=== PATIENT | male | born 1970 | race Caucasian/White ===

== ENCOUNTER 2020-09-10 15:43 | Emergency (ER) | payer MEDICARE, OTHER, SELFPAY ==
[2020-09-10 16:03] VITALS: BP 157/92; PULSE 115; RESP 18; TEMP 37.4; O2SAT 97; BMI 33.0
[2020-09-10 16:44] VITALS: RESP 18; O2SAT 98
[2020-09-10] MEDS: morphine 4 mg/mL SDV 1 mL IM (16:44)
[2020-09-10] MEDS: LORazepam 2 mg/mL INJ 1 mL IM (16:44)
[2020-09-10] MEDS: orphenadrine 30 mg/mL Inj 2 mL 60 MG IM (16:45)
[2020-09-10] MEDS: ketorolac 60 mg/2 mL INJ IM (16:45)
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
--- NOTE | 2020-09-10 17:21 | PC.NURSE ---
INFORMED OF DC PATIENT INFORMED OF DC. NURSE AND PRESENT FOR DISCUSSION. PATIENT OKAY WITH DC AND SET UP WITH PCP BY CASE DANIELG.
[2020-09-10 17:33] VITALS: BP 145/98; PULSE 100; RESP 18; O2SAT 95
--- NOTE | 2020-09-11 14:34 | DCPLANNER ---
international account manager had message to speak with patient about getting established with a primary care and a referral to pain management. international account manager called phone number [phone], was disconnected, unable to speak with patient at this time.
== END 2020-09-10 17:34 | disposition home or self-care (01) ==
PROVIDERS: Emergency Provider Family Medicine; PCP Family Medicine
DX: M25.222 Flail joint, left elbow (principal); G89.29 Other chronic pain; M54.9 Dorsalgia, unspecified; X58.XXXA Exposure to other specified factors, initial encounter
CPT/HCPCS: 12345; 96372; 99281; 99283; J1885; J2060; J2270; J2360

== ENCOUNTER 2020-09-13 18:32 | Emergency (ER) | payer MEDICARE, OTHER, SELFPAY ==
[2020-09-13 18:37] VITALS: BMI 33.0
--- NOTE | 2020-09-13 18:42 | ED_ITS ---
HPI - Altered Mental Status General: Chief Complaint: Psychiatric Symptoms Stated Complaint: chronic back pain/heroin withdrawl Time Seen by Provider: 09/13/20 18:34 History of Present Illness: HPI narrative: This patient is a 50-year-old male who comes in today after a fall. He said he fell because he is weak and he is weak because he is withdrawing from heroin. He has chronic pain in his back and arm. He has had multiple surgeries to his left elbow and basically has a nonfunctioning arm. He said that he got kicked out of pain management because he was using heroin. He was using heroin because they were giving him enough pain medicine. He is extremely labile, 1 minute yelling and cussing in the next minute crying and apologizing. He states that he would never kill himself but he would be very happy if he did today. complaint: altered mental status and weakness Onset (ago): unknown Severity: severe Context: drug abuse (States withdrawing from heroin) Review of Systems General: Reports: ROS unobtainable due to mental status (Very limited) Card: Denies: chest pain Resp: Denies: productive cough or non-productive cough Musc: Reports: back pain (Chronic) and extremity pain (Chronic); Denies: neck pain Skin/Breast: Denies: rash Neuro: Reports: headache(s) (Since falling and hitting his head today) and frequent falls; Denies: numbness in extremities or weakness in extremities Juanito/Lymph: Denies: easy bruising or easy bleeding PFS ED PFSH: Medical History (Updated 09/13/20 @ 21:17 by Veronica Cormier MD) Chronic back pain Flail joint of elbow Social History (Updated 09/13/20 @ 18:47 by Harvinder Moreira RN) Smoking and tobacco status: current some day smoker Alcohol intake: never Substance/Drug Use: current Substance/Drug use type: Heroin, Amphetamines and Methamphetamine Physical Exam Const: COMMON NORMALS: alert HENMT: HEAD & SCALP: normal to inspection FACE & SINUS: normal facial exam Eye: GENERAL EYE: appearance normal, both eyes and all related structures Neck/C-Spine: COMMON NORMALS: supple, no meningeal signs and no JVD Chest: COMMONS NORMALS: normal inspection of the chest Resp: COMMON NORMALS: normal respiratory effort, No use of accessory muscles and clear to auscultation bilaterally AUSCULTATION: clear to auscultation bilaterally Cardio: COMMON NORMALS: no JVD, regular rate, regular rhythm and No murmurs present (Cardio) RATE: regular rate RHYTHM: regular rhythm GI: COMMON NORMALS: Normal to inspection, nondistended, normoactive bowel sounds present, Soft to palpation and non-tender INSPECTION: Yes normal to inspection AUSCULTATION: Yes normoactive bowel sounds PALPATION: Yes Soft to palpation Back/Pelvis: COMMON NORMALS: thoracic and lumbar spine normal to inspection Extremity: NARRATIVE EXTREMITY EXAM: Multiple areas of track astudillo on both forearms. The left arm has a flail elbow joint and is basically uncontrollable for the patient Neuro: COMMON NORMALS: moves all extremities, no focal motor deficits and no sensory deficits noted SENSORIUM/ORIENTATION: Yes alert MENINGEAL SIGNS: Yes no meningeal signs Psych: COMMON NORMALS: mental status grossly normal, cooperative and normal affect ATTITUDE: Yes bizarre and Yes agitated ACTIVITY/MOTOR BEHAVIOR: Yes restless SPEECH: Yes loud and Yes Pressured speech present MOOD & AFFECT: Yes sad, Yes tearful, Yes Labile affect present and Yes hostile affect THOUGHT PROCESS: disorganized and Flight of ideas present INSIGHT: Poor insight present (Psych) JUDGEMENT: Poor judgement present (Psych) Skin: COMMON NORMALS: no rashes or lesions noted and turgor normal GENERAL SKIN EXAM: no rashes or lesions noted and turgor normal Course ED course: This patient is a 50-year-old male. He was very labile and worked up in the department and I gave him a dose of Geodon which seemed to help calm him down. He was much more cooperative and oriented after that. He asked to be discharged because we were not giving him any pain medicine. We discussed options for pain management and treatment of his substance abuse. He was discharged home and hopefully he will seek out resources to get help with his various problems. He was not suicidal in the ER Vital Signs: Vital signs: Vital Signs Pulse Rate 89 09/13/20 21:29 Respiratory Rate 16 09/13/20 21:29 Blood Pressure 144/79 09/13/20 21:29 Pulse Oximetry 96 09/13/20 21:29 MDM - Altered Mental Status Lab Data: Labs: Lab Results 09/13/20 09/13/20 09/13/20 Range/Units 19:51 19:51 19:56 WBC 7.3 (4.0-10.0) 10^3/ uL RBC 4.31 (4.1-5.3) 10^6/u L Hgb 11.9 (11.7-16.6) g/dL Hct 38.8 L (42.0-52.0) % MCV 90.0 (80-94) fL MCH 27.6 L (28.0-34.0) pg MCHC 30.7 (30.0-36.0) g/dL RDW 12.9 (12.1-15.1) % Plt Count 321 (130-400) 10^3/c mm MPV 10.2 (7.4-10.4) fL Neut % (Auto) 70.7 % Lymph % (Auto) 21.0 % [place] % (Auto) 5.9 % Eos % (Auto) 1.0 % Baso % (Auto) 1.0 % Neut # (Auto) 5.15 (1.8-7.7) 10^3/u L Lymph # (Auto) 1.5 (0.8-4.8) 10^3/u L [place] # (Auto) 0.4 (0.2-0.9) 10^3/u L Eos # (Auto) 0.1 (0.0-0.8) 10^3/u L Baso # (Auto) 0.1 (0.0-0.1) 10^3/u L Nucleated RBC % (a uto) 0 % Nucleated RBCs # 0.0 /100WBC PT (12.1-14.9) SECO NDS INR (0.8-1.2) Sodium (136-145) mmol/L Potassium (3.5-5.1) mmol/L Chloride (98-107) mmol/L Carbon Dioxide (22-29) mmol/L Anion Gap (5-19) BUN (6-20) mg/dL Creatinine (0.7-1.2) mg/dL GFR Calculation (90-130) mL/min Glucose (65-115) mg/dL Calculated Osmolal ity (285-295) mOsm/k g Calcium (8.5-10.5) mg/dL Total Bilirubin (0.15-1.2) mg/dL AST (0-40) U/L ALT (0-41) U/L Alkaline Phosphata se (40-130) IU/L Total Protein (6.6-8.7) g/dL Albumin (3.5-5.2) g/dL Globulin (1.3-4.6) g/dL TSH (0.27-4.20) uIU/ mL Urine Color Yellow (Yellow) Urine Appearance Clear (CLEAR) Urine pH 8 H (5-7) Ur Specific Gravit y 1.005 (1.005-1.030) Urine Protein Neg (Negative) Urine Glucose (UA) Norm (Normal) Urine Ketones Negative (Negative) Urine Blood Neg (Negative) Urine Nitrate Negative (Negative) Urine Bilirubin Neg (Negative) Prot Sulfosalicyli c Acd Negative (Negative) Urine Urobilinogen Norm (Negative) mg/dL Ur Leukocyte Stephanie ase Negative (Negative) Salicylates (3-10) mg/dL Urine Opiates Scre en Positive H (Negative) ng/mL Acetaminophen (10-30) ug/mL Ur Barbiturates Sc reen Negative (Negative) ng/mL Ur Phencyclidine S crn Negative (Negative) ng/mL Ur Amphetamines Sc reen Positive H (Negative) ng/mL U Benzodiazepines Scrn Positive H (Negative) ng/mL Urine Cocaine Scre en Negative (Negative) ng/mL U Marijuana (THC) Screen Positive H (Negative) ng/mL Ethyl Alcohol (0-10) mg/dL 09/13/20 09/13/20 Range/Units 19:56 19:56 WBC (4.0-10.0) 10^3/ uL RBC (4.1-5.3) 10^6/u L Hgb (11.7-16.6) g/dL Hct (42.0-52.0) % MCV (80-94) fL MCH (28.0-34.0) pg MCHC (30.0-36.0) g/dL RDW (12.1-15.1) % Plt Count (130-400) 10^3/c mm MPV (7.4-10.4) fL Neut % (Auto) % Lymph % (Auto) % [place] % (Auto) % Eos % (Auto) % Baso % (Auto) % Neut # (Auto) (1.8-7.7) 10^3/u L Lymph # (Auto) (0.8-4.8) 10^3/u L [place] # (Auto) (0.2-0.9) 10^3/u L Eos # (Auto) (0.0-0.8) 10^3/u L Baso # (Auto) (0.0-0.1) 10^3/u L Nucleated RBC % (a uto) % Nucleated RBCs # /100WBC PT 12.60 (12.1-14.9) SECO NDS INR 0.92 (0.8-1.2) Sodium 140 (136-145) mmol/L Potassium 3.9 (3.5-5.1) mmol/L Chloride 105 (98-107) mmol/L Carbon Dioxide 24 (22-29) mmol/L Anion Gap 14.9 (5-19) BUN 17 (6-20) mg/dL Creatinine 0.9 (0.7-1.2) mg/dL GFR Calculation 89.0 L (90-130) mL/min Glucose 99 (65-115) mg/dL Calculated Osmolal ity 292 (285-295) mOsm/k g Calcium 9.6 (8.5-10.5) mg/dL Total Bilirubin 0.4 (0.15-1.2) mg/dL AST 22 (0-40) U/L ALT 18 (0-41) U/L Alkaline Phosphata se 72 (40-130) IU/L Total Protein 7.5 (6.6-8.7) g/dL Albumin 3.7 (3.5-5.2) g/dL Globulin 3.8 (1.3-4.6) g/dL TSH 0.81 (0.27-4.20) uIU/ mL Urine Color (Yellow) Urine Appearance (CLEAR) Urine pH (5-7) Ur Specific Gravit y (1.005-1.030) Urine Protein (Negative) Urine Glucose (UA) (Normal) Urine Ketones (Negative) Urine Blood (Negative) Urine Nitrate (Negative) Urine Bilirubin (Negative) Prot Sulfosalicyli c Acd (Negative) Urine Urobilinogen (Negative) mg/dL Ur Leukocyte Stephanie ase (Negative) Salicylates < 0.3 L (3-10) mg/dL Urine Opiates Scre en (Negative) ng/mL Acetaminophen < 5.0 L (10-30) ug/mL Ur Barbiturates Sc reen (Negative) ng/mL Ur Phencyclidine S crn (Negative) ng/mL Ur Amphetamines Sc reen (Negative) ng/mL U Benzodiazepines Scrn (Negative) ng/mL Urine Cocaine Scre en (Negative) ng/mL U Marijuana (THC) Screen (Negative) ng/mL Ethyl Alcohol < 10 (0-10) mg/dL Discharge Plan Discharge Patient Disposition: Home Clinical Impression: Active substance abuse Chronic back pain Qualifiers: Back pain location: back pain in unspecified location Back pain laterality: unspecified Qualified Code(s): M54.9 - Dorsalgia, unspecified Flail joint of elbow Qualifiers: Laterality: left Qualified Code(s): M25.222 - Flail joint, left elbow Condition: Stable Prescriptions: No Action diclofenac sodium 75 mg tablet,delayed release (DR/EC) 75 mg PO Q12H PRN (Reason: pain) Qty: 20 RF: 0 hydrocodone-acetaminophen 7.5-300 mg tablet 1 tab PO Q6H PRN (Reason: pain) Qty: 10 RF: 0 tizanidine 4 mg capsule 4 mg PO Q6H PRN (Reason: muscle spasticity) Qty: 20 RF: 0 Discharge Orders: Discharge Order (Routine); Ordered 09/13/20 Ordered By: Veronica Cormier Referrals: [facility], [Staff Physician] - 4-7 days Rivas Lobo MD [Primary Care Provider] - Discharge Diet: Usual diet Discharge Activity: Resume usual activity Patient Instructions: Chronic Pain (ED), Polysubstance Abuse (ED) Activity Restrictions/Additional Instructions: Return to the ER if any thoughts of harming yourself or anyone else. Seek help with your chronic pain as advised on your last ER visit. Seek help with your substance abuse through behavioral health and other community resources. Discharge Date/Time: 09/13/20 21:31 Coding Level of Care Code ED Senior Oracle Database Administrator for Simi Fwd Exam Comprehensive
--- NOTE | 2020-09-13 18:58 | CTR_ITS ---
PROCEDURE INFORMATION: Exam: CT Head Without Contrast Exam date and time: 09/13/2020 7:11 PM Age: 50 years old Clinical indication: Pain and injury or trauma; Fall; Blunt trauma (contusions or hematomas); Headache; Injury details: Left frontal hematoma; Additional info: Fell, hit head TECHNIQUE: Imaging protocol: Computed tomography of the head without contrast. Axial, coronal and sagittal reformatted images were created and reviewed. Radiation optimization: All CT scans at this facility use at least one of these dose optimization techniques: automated exposure control; mA and/or kV adjustment per patient size (includes targeted exams where dose is matched to clinical indication); or iterative reconstruction. COMPARISON: No relevant prior studies available. RADIATION DOSE METRICS: Total DLP (mGy-cm): 644.71 FINDINGS: Brain: Subtle, patchy areas of hypoattenuation in the periventricular and subcortical white matter, nonspecific but suggestive of mild chronic small vessel ischemic disease. Focal, well-circumscribed hypodensity in the left inferior basal ganglia, consistent with a dilated perivascular space versus chronic lacunar infarct. No CT evidence of acute intracranial hemorrhage or acute territorial infarction. No significant mass effect or midline shift. Basal cisterns patent. Cerebral ventricles: Prominence of the cortical sulci, cisterns and ventricular system, consistent with cerebral and cerebellar volume loss. Bones/joints: No acute osseous abnormality. Paranasal sinuses: Mild ethmoid and maxillary sinus mucosal thickening. No fluid levels. Mastoid air cells: Grossly unremarkable. Vasculature: Mild calcific atherosclerotic disease in the cavernous internal carotid arteries. Soft tissues: Mild left frontal scalp swelling. CT/CT head wo con* [id number] IMPRESSION: 1. No CT evidence of acute intracranial pathology. 2. Additional findings, as above. Radiation Dose CTDIVOL = (mGy): DLP = 644.71 (mGy-cm)
[2020-09-13] MEDS: ziprasidone 20 mg/mL SDV IM (19:11)
[2020-09-13 19:49] VITALS: BP 125/77; PULSE 97; O2SAT 95
[2020-09-13 20:01] LABS: Add Urine Microscopic? NO
--- NOTE | 2020-09-13 20:08 | PC.NURSE ---
Pt given water and food. Pt repositioned for comfort.
[2020-09-13 20:10] LABS: Basophils # 0.1 10^3/uL (0.0-0.1); Eosinophils # 0.1 10^3/uL (0.0-0.8); Hematocrit 38.8 % (42.0-52.0); Hemoglobin 11.9 g/dL (11.7-16.6); Lymphocytes # 1.5 10^3/uL (0.8-4.8); Mean Corpuscular HGB Conc 30.7 g/dL (30.0-36.0); Mean Corpuscular Hemoglobin 27.6 pg (28.0-34.0); Mean Platelet Volume 10.2 fL (7.4-10.4); Monocytes # 0.4 10^3/uL (0.2-0.9); Monocytes % 5.9 %; Neutrophils # 5.15 10^3/uL (1.8-7.7); Neutrophils % 70.7 %; Nucleated Red Blood Cells % 0 %; Platelet Count 321 10^3/cmm (130-400); Red Blood Count 4.31 10^6/uL (4.1-5.3); Red Cell Distribution Width 12.9 % (12.1-15.1); White Blood Count 7.3 10^3/uL (4.0-10.0)
[2020-09-13 20:14] LABS: Amphetamines Screen Urine Positive (Negative); Barbiturates Screen Urine Negative (Negative); Benzodiazepines Screen Urine Positive (Negative); Cocaine Screen Urine Negative (Negative); Opiate Screen Urine Positive (Negative); PCP Screen Urine Negative (Negative); THC Screen Urine Positive (Negative)
[2020-09-13 20:29] LABS: INR 0.92 (0.8-1.2)
[2020-09-13 20:36] LABS: Bilirubin Urine Neg (Negative); Blood Urine Neg (Negative); Glucose Urine UA Norm (Normal); Ketones Urine Negative (Negative); Leukocyte Esterase Urine Negative (Negative); Nitrate Urine Negative (Negative); Protein Urine Neg (Negative); Specific Gravity, Urine 1.005 (1.005-1.030); Sulfosalicylic Acid Urine Negative (Negative); Urine Appearance Clear (CLEAR); Urine Color Yellow (Yellow); Urobilinogen Urine Norm (Negative); pH Urine 8 (5-7)
[2020-09-13 20:48] LABS: Alanine Aminotransferase 18 U/L (0-41); Albumin Level 3.7 g/dL (3.5-5.2); Alkaline Phosphatase 72 IU/L (40-130); Anion Gap 14.9 (5-19); Aspartate Amino Transferase 22 U/L (0-40); Blood Urea Nitrogen 17 mg/dL (6-20); Calcium 9.6 mg/dL (8.5-10.5); Carbon Dioxide 24 mmol/L (22-29); Chloride 105 mmol/L (98-107); Globulin 3.8 g/dL (1.3-4.6); Glucose 99 mg/dL (65-115); Osmolality Calculated 292 mOsm/kg (285-295); Potassium 3.9 mmol/L (3.5-5.1); Sodium 140 mmol/L (136-145); Thyroid Stimulating Hormone 0.81 uIU/mL (0.27-4.20); Total Bilirubin 0.4 mg/dL (0.15-1.2); Total Protein 7.5 g/dL (6.6-8.7)
[2020-09-13 20:49] LABS: Acetaminophen < 5.0 ug/mL (10-30); Alcohol Level < 10 mg/dL (0-10); Salicylate < 0.3 mg/dL (3-10)
[2020-09-13 20:56] VITALS: BP 168/90; PULSE 91; O2SAT 99
[2020-09-13 21:29] VITALS: BP 144/79; PULSE 89; RESP 16; O2SAT 96
--- NOTE | 2020-09-13 21:31 | PC.NURSE ---
Pt placed in pt gown and discharged to waiting room to wait for his .
== END 2020-09-13 21:31 | disposition home or self-care (01) ==
PROVIDERS: Emergency Provider Emergency Medicine; PCP Family Medicine
DX: F11.23 Opioid dependence with withdrawal (principal); F17.210 Nicotine dependence, cigarettes, uncomplicated; M79.602 Pain in left arm; R53.1 Weakness; R41.82 Altered mental status, unspecified
CPT/HCPCS: 12345; 36415; 70450; 80053; 80306; 80307; 81003; 84443; 85025; 85610; 96372; 99284; J3486

== ENCOUNTER 2021-06-07 20:54 | Inpatient (IN) | payer MEDICARE, OTHER, SELFPAY ==
--- NOTE | 2021-06-07 21:23 | XRR_ITS ---
PROCEDURE INFORMATION: Exam: XR Chest Exam date and time: 06/07/2021 9:23 PM Age: 50 years old Clinical indication: Pain; Left-sided; Patient HX: Sharp cp, SOB TECHNIQUE: Imaging protocol: XR of the chest. Views: 1 view. COMPARISON: No relevant prior studies available. FINDINGS: Lungs: Right lung is clear. Left lung poorly assessed. Pleural spaces: Large left-sided pleural effusion. Heart/Mediastinum: Unremarkable. No cardiomegaly. Bones/joints: Right shoulder reverse arthroplasty. Left posterior rib fractures. XR/XR chest 1V portable [id number] IMPRESSION: 1. Large left pleural effusion. 2. Left rib fractures.
--- NOTE | 2021-06-07 21:39 | CTR_ITS ---
PROCEDURE INFORMATION: Exam: CT Chest With Contrast; Diagnostic Exam date and time: 06/07/2021 9:39 PM Age: 50 years old Clinical indication: Injury or trauma; Fracture, traumatic; Other: Costal; Prior surgery; Surgery type: Shoulder; Patient HX: Recent fall with left rib fracture. C/O continued pain with worsening SOB. TECHNIQUE: Imaging protocol: Diagnostic computed tomography of the chest with contrast. Radiation optimization: All CT scans at this facility use at least one of these dose optimization techniques: automated exposure control; mA and/or kV adjustment per patient size (includes targeted exams where dose is matched to clinical indication); or iterative reconstruction. Contrast material: OMNI 300; Contrast volume: 95 ml; Contrast route: INTRAVENOUS (IV); COMPARISON: CR (CHEST, ) 06/07/2021 9:27 PM RADIATION DOSE METRICS: Total DLP (mGy-cm): 1152.84 FINDINGS: Lungs: Compressed left lung parenchyma in the lower lobe primarily. Right lung clear. Pleural spaces: Large left pleural effusion. Multi loculated appearance. Foci of air in the posterior left pleural space. Heart: Unremarkable. No cardiomegaly. No pericardial effusion. Mediastinal space: Calcified granulomas within mediastinum. Aorta: Unremarkable. No aortic aneurysm. Lymph nodes: Negative for mediastinal lymphadenopathy. Right shoulder reverse arthroplasty with unremarkable alignment. Bones/joints: Multiple displaced left posterior rib fractures. Unremarkable thoracic spine alignment. Soft tissues: No significant chest wall soft tissue hematoma. CT/CT chest w con* [id number] IMPRESSION: 1. Large volume multiloculated left pleural effusion. Foci of air in the left posterior pleural space is not thick. Possibly posttraumatic but infection cannot be excluded. 2. Multiple left-sided posterior rib fractures. Radiation Dose CTDIVOL = (mGy): DLP = 1152.84 (mGy-cm)
[2021-06-07 21:41] VITALS: BP 139/86; PULSE 105; RESP 24; O2SAT 97; BMI 29.0
--- NOTE | 2021-06-07 21:46 | ED_ITS ---
HPI - Chest Pain General: Chief Complaint: ER Hold Stated Complaint: AFIB Time Seen by Provider: 06/07/21 21:23 Source: patient and EMS Mode of arrival: EMS Limitations: no limitations History of Present Illness: HPI narrative: 50-year-old male who is here by EMS with palpitations and left-sided chest pain. He states he has a history of A. fib and goes in RVR when he is in pain. He states he had a fall a week and a half ago was seen at [place] and diagnosed with left-sided rib fractures. He states he had increasing pain in that left side that sharp nature and worse with movement. States he feels like he cannot breathe either. He is in A. fib with RVR and was given Cardizem and heart rate is improved. Associated symptoms: Reports dyspnea and palpitations; Deny abdominal pain, fever(s), nausea or vomiting Review of Systems Const: Denies: fever(s), chills, body aches or change in appetite Eyes: Denies: blurry vision or eye discomfort ENMT: Denies: throat pain or dental pain Card: Reports: chest pain and palpitations Resp: Reports: dyspnea GI: Denies: abdominal pain, nausea, vomiting or diarrhea : Denies: dysuria Musc: Denies: neck pain or back pain Skin/Breast: Denies: rash Neuro: Denies: headache(s) Psych: Denies: depression Juanito/Lymph: Denies: easy bruising All/Imm: Denies: urticaria PFSH ED PFSH: Medical History (Updated 09/21/20 @ 00:00 by ) Chronic back pain Flail joint of elbow Social History (Updated 09/13/20 @ 18:47 by Harvinder Moreira RN) Smoking and tobacco status: current some day smoker Alcohol intake: never Physical Exam Const: COMMON NORMALS: no acute distress, patient oriented x3 and healthy appearing HENMT: COMMON NORMALS: normocephalic and atraumatic HEAD & SCALP: normocephalic and atraumatic Eye: COMMON NORMALS: Equal, round and reactive pupils present and EOMs intact bilaterally PUPIL: Yes Equal, round and reactive pupils present Neck/C-Spine: COMMON NORMALS: full ROM and supple Chest: COMMONS NORMALS: normal inspection of the chest OTHER: Tenderness over left chest Resp: COMMON NORMALS: normal respiratory effort, No retractions and No use of accessory muscles OTHER: Decreased breath sounds to left lung Cardio: COMMON NORMALS: No murmurs present (Cardio) RATE: tachycardic RHYTHM: abnormal rhythm irregularly irregular GI: COMMON NORMALS: Normal to inspection, nondistended, normoactive bowel sounds present, Soft to palpation, non-tender and no masses PALPATION: Yes Soft to palpation Extremity: COMMON NORMALS: normal to inspection and full ROM Neuro: COMMON NORMALS: patient oriented x3, moves all extremities and no focal motor deficits Psych: COMMON NORMALS: mental status grossly normal, Normal thought process present and cooperative THOUGHT PROCESS: Normal thought process present Skin: COMMON NORMALS: no rashes or lesions noted and no wounds GENERAL SKIN EXAM: no rashes or lesions noted Course Vital Signs: Vital signs: Vital Signs Temperature 99.5 F 06/08/21 00:38 Pulse Rate 93 06/08/21 00:38 Respiratory Rate 16 06/08/21 00:55 Blood Pressure 129/73 06/08/21 00:38 Pulse Oximetry 93 06/08/21 00:38 MDM - Chest Pain MDM Narrative: Medical decision making narrative: Patient presents here with chest pain fever and dyspnea after fall 2 weeks ago and had rib fractures. His CT scan here showed the rib fractures along with a pleural effusion with suspicion for possible empyema. I spoke to hospitalist will admit here. Also spoke to CT surgeon Dr. Roberts who is consulted. Lab Data: Labs: Lab Results 06/07/21 06/07/21 06/07/21 Range/Units 22:21 22:21 22:21 WBC 14.1 H (4.0-10.0) 10^3/ uL RBC 3.69 L (4.1-5.3) 10^6/u L Hgb 10.4 L (11.7-16.6) g/dL Hct 32.4 L (42.0-52.0) % MCV 87.8 (80-94) fL MCH 28.2 (28.0-34.0) pg MCHC 32.1 (30.0-36.0) g/dL RDW 14.2 (12.1-15.1) % Plt Count 352 (130-400) 10^3/c mm MPV 10.1 (7.4-10.4) fL Neut % (Auto) 77.5 % Lymph % (Auto) 10.9 % [place] % (Auto) 8.9 % Eos % (Auto) 0.4 % Baso % (Auto) 0.5 % Neut # (Auto) 10.91 H (1.8-7.7) 10^3/u L Lymph # (Auto) 1.5 (0.8-4.8) 10^3/u L [place] # (Auto) 1.3 H (0.2-0.9) 10^3/u L Eos # (Auto) 0.1 (0.0-0.8) 10^3/u L Baso # (Auto) 0.1 (0.0-0.1) 10^3/u L Nucleated RBC % (a uto) 0 % Nucleated RBCs # 0.0 /100WBC Sodium 131 L (136-145) mmol/L Potassium 3.8 (3.5-5.1) mmol/L Chloride 96 L (98-107) mmol/L Carbon Dioxide 26 (22-29) mmol/L Anion Gap 12.8 (5-19) BUN 11 (6-20) mg/dL Creatinine 0.8 (0.7-1.2) mg/dL GFR Calculation 101.9 (90-130) mL/min Glucose 98 (65-115) mg/dL Calculated Osmolal ity 271 L (285-295) mOsm/k g Lactic Acid (0.5-2.2) mmol/L Calcium 8.3 L (8.5-10.5) mg/dL Total Bilirubin 0.4 (0.15-1.2) mg/dL AST 14 (0-40) U/L ALT 12 (0-41) U/L Alkaline Phosphata se 117 (40-130) IU/L Troponin T Baselin e 17 H (0-15) ng/L Troponin T [address] [place] (0-15) ng/L Delta Troponin T (0-10) ABS# Total Protein 5.8 L (6.6-8.7) g/dL Albumin 2.9 L (3.5-5.2) g/dL Globulin 2.9 (1.3-4.6) g/dL 06/07/21 06/07/21 Range/Units 22:45 23:12 WBC (4.0-10.0) 10^3/ uL RBC (4.1-5.3) 10^6/u L Hgb (11.7-16.6) g/dL Hct (42.0-52.0) % MCV (80-94) fL MCH (28.0-34.0) pg MCHC (30.0-36.0) g/dL RDW (12.1-15.1) % Plt Count (130-400) 10^3/c mm MPV (7.4-10.4) fL Neut % (Auto) % Lymph % (Auto) % [place] % (Auto) % Eos % (Auto) % Baso % (Auto) % Neut # (Auto) (1.8-7.7) 10^3/u L Lymph # (Auto) (0.8-4.8) 10^3/u L [place] # (Auto) (0.2-0.9) 10^3/u L Eos # (Auto) (0.0-0.8) 10^3/u L Baso # (Auto) (0.0-0.1) 10^3/u L Nucleated RBC % (a uto) % Nucleated RBCs # /100WBC Sodium (136-145) mmol/L Potassium (3.5-5.1) mmol/L Chloride (98-107) mmol/L Carbon Dioxide (22-29) mmol/L Anion Gap (5-19) BUN (6-20) mg/dL Creatinine (0.7-1.2) mg/dL GFR Calculation (90-130) mL/min Glucose (65-115) mg/dL Calculated Osmolal ity (285-295) mOsm/k g Lactic Acid 0.6 (0.5-2.2) mmol/L Calcium (8.5-10.5) mg/dL Total Bilirubin (0.15-1.2) mg/dL AST (0-40) U/L ALT (0-41) U/L Alkaline Phosphata se (40-130) IU/L Troponin T Baselin e (0-15) ng/L Troponin T 120 Min [place] 18.18 H (0-15) ng/L Delta Troponin T 1.18 (0-10) ABS# Total Protein (6.6-8.7) g/dL Albumin (3.5-5.2) g/dL Globulin (1.3-4.6) g/dL Imaging Data^: CT Chest: Attestation: I personally reviewed and interpreted this imaging study as follows: Radiologist's impression: [facility] [place] [address] CT Scan Report Signed Patient: Payam Olea Unit #: [id number] : 1970 Age/Sex: 50 / M ADM Date: 06/07/21 Loc: ER Room/Bed: Attending Dr: Ordering Provider/Ordering MD: Candace Ahs MD Date of Service: 06/07/21 Procedure(s): CT chest w con* [id number] Accession Number(s): [id number] Report Number: [id number] PROCEDURE INFORMATION: Exam: CT Chest With Contrast; Diagnostic Exam date and time: 06/07/2021 9:39 PM Age: 50 years old Clinical indication: Injury or trauma; Fracture, traumatic; Other: Costal; Prior surgery; Surgery type: Shoulder; Patient HX: Recent fall with left rib fracture. C/O continued pain with worsening SOB. TECHNIQUE: Imaging protocol: Diagnostic computed tomography of the chest with contrast. Radiation optimization: All CT scans at this facility use at least one of these dose optimization techniques: automated exposure control; mA and/or kV adjustment per patient size (includes targeted exams where dose is matched to clinical indication); or iterative reconstruction. Contrast material: OMNI 300; Contrast volume: 95 ml; Contrast route: INTRAVENOUS (IV); COMPARISON: CR (CHEST, ) 06/07/2021 9:27 PM RADIATION DOSE METRICS: Total DLP (mGy-cm): 1152.84 FINDINGS: Lungs: Compressed left lung parenchyma in the lower lobe primarily. Right lung clear. Pleural spaces: Large left pleural effusion. Multi loculated appearance. Foci of air in the posterior left pleural space. Heart: Unremarkable. No cardiomegaly. No pericardial effusion. Mediastinal space: Calcified granulomas within mediastinum. Aorta: Unremarkable. No aortic aneurysm. Lymph nodes: Negative for mediastinal lymphadenopathy. Right shoulder reverse arthroplasty with unremarkable alignment. Bones/joints: Multiple displaced left posterior rib fractures. Unremarkable thoracic spine alignment. Soft tissues: No significant chest wall soft tissue hematoma. CT/CT chest w con* [id number] IMPRESSION: 1. Large volume multiloculated left pleural effusion. Foci of air in the left posterior pleural space is not thick. Possibly posttraumatic but infection cannot be excluded. 2. Multiple left-sided posterior rib fractures. EKG Data^: EKG 1: Attestation: I personally reviewed and interpreted this EKG as follows: EKG interpretation date: 06/07/21 EKG interpretation time: 22:17 Interpretation: sinus tach hr [address] or t wave abnormalities qrs 122 qtc 396 Discharge Plan Discharge Patient Disposition: Admitted As Inpatient Admit Provider: Kellie Willard Clinical Impression: Pleural effusion, Fracture, rib Condition: Stable Coding Level of Care Code ED Janitorial Services Supervisor for Chg Fwd Exam Comprehensive
[2021-06-07 21:51] VITALS: RESP 24
[2021-06-07] MEDS: morphine 4 mg/mL SDV 1 mL IVP (21:51)
[2021-06-07] MEDS: ondansetron 2 mg/ML SDV 2 mL 4 MG IVP (21:51)
[2021-06-07] MEDS: iohexol 300 mg/mL 100 mL Btl IV (22:11)
[2021-06-07 22:23] VITALS: TEMP 38.4
[2021-06-07 22:27] LABS: Basophils # 0.1 10^3/uL (0.0-0.1); Basophils % 0.5 %; Eosinophils # 0.1 10^3/uL (0.0-0.8); Eosinophils % 0.4 %; Hematocrit 32.4 % (42.0-52.0); Hemoglobin 10.4 g/dL (11.7-16.6); Lymphocytes # 1.5 10^3/uL (0.8-4.8); Lymphocytes % 10.9 %; Mean Corpuscular HGB Conc 32.1 g/dL (30.0-36.0); Mean Corpuscular Hemoglobin 28.2 pg (28.0-34.0); Mean Corpuscular Volume 87.8 fL (80-94); Mean Platelet Volume 10.1 fL (7.4-10.4); Monocytes # 1.3 10^3/uL (0.2-0.9); Monocytes % 8.9 %; Neutrophils # 10.91 10^3/uL (1.8-7.7); Neutrophils % 77.5 %; Nucleated Red Blood Cells % 0 %; Platelet Count 352 10^3/cmm (130-400); Red Blood Count 3.69 10^6/uL (4.1-5.3); Red Cell Distribution Width 14.2 % (12.1-15.1); White Blood Count 14.1 10^3/uL (4.0-10.0)
[2021-06-07 22:33] VITALS: RESP 16
[2021-06-07] MEDS: acetaminophen 500 mg Tablet 1000 MG PO (22:33)
[2021-06-07] MEDS: HYDROmorphone 1 mg/mL INJ 1 mL IVP (22:33)
[2021-06-07] MEDS: piperacillin-tazobactam 3.375 GM in sodium chloride 0.9% (plus) 50 ML IV (22:47)
[2021-06-07 22:48] LABS: Troponin(5th) Baseline 17 ng/L (0-15)
[2021-06-07 22:51] VITALS: BP 130/79; PULSE 101; RESP 14; O2SAT 93
[2021-06-07 22:54] LABS: Alanine Aminotransferase 12 U/L (0-41); Albumin Level 2.9 g/dL (3.5-5.2); Alkaline Phosphatase 117 IU/L (40-130); Anion Gap 12.8 (5-19); Aspartate Amino Transferase 14 U/L (0-40); Blood Urea Nitrogen 11 mg/dL (6-20); Calcium 8.3 mg/dL (8.5-10.5); Carbon Dioxide 26 mmol/L (22-29); Chloride 96 mmol/L (98-107); Creatinine Clr Calc Pharmacy 135.7497; Globulin 2.9 g/dL (1.3-4.6); Glomerular Filtration Rate 101.9 mL/min (90-130); Glucose 98 mg/dL (65-115); Osmolality Calculated 271 mOsm/kg (285-295); Potassium 3.8 mmol/L (3.5-5.1); Sodium 131 mmol/L (136-145); Total Bilirubin 0.4 mg/dL (0.15-1.2); Total Protein 5.8 g/dL (6.6-8.7)
[2021-06-07 23:11] LABS: Lactic Sepsis W/Reflex 0.6 mmol/L (0.5-2.2)
[2021-06-07] MEDS: vancomycin 1,000 MG in sodium chloride 0.9% 250 ML 250 MG IV (23:16)
--- NOTE | 2021-06-07 23:23 | ECG_ITS ---
[facility] Test Date: 2021-06-07 Pat Name: Payam Olea Department: Room: Gender: Male Bonbon Dipper: : 1970 Requested By: Candace Ash Order Number: [id number] Edil MD: JEFFERY MONGE Measurements Intervals [place] Rate: 100 P: 51 MD: 159 QRS: 3 QRSD: 122 T: 41 QT: 339 QTc: 439 Interpretive Statements SINUS TACHYCARDIA POSSIBLE LEFT ATRIAL ENLARGEMENT [-0.1mV P WAVE IN V1/V2] POSSIBLE RIGHT VENTRICULAR CONDUCTION DELAY [RSR (QR) IN V1/V2] ABNORMAL RHYTHM ECG No previous ECG available for comparison Electronically Signed On 06-08-2021 14:30:38 CDT by JEFFERY MONEG [id number]
[2021-06-07 23:37] LABS: Troponin 5 2HR 18.18 ng/L (0-15); Troponin 5 2HR Delta 1.18 ABS# (0-10)
[2021-06-08] VITALS (25 sets, daily range): BP systolic 129–168; BP diastolic 73–101; PULSE 75–93; RESP 14–24; TEMP 36.9–37.8; O2SAT 92–99
[2021-06-08] MEDS: HYDROmorphone 1 mg/mL INJ 1 mL IVP ×5 (00:55→21:05)
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
[2021-06-08 02:24] LABS: SARS Covid-2 Antigen Negative (Negative)
--- NOTE | 2021-06-08 03:23 | ECG_ITS ---
[facility] Test Date: 2021-06-08 Pat Name: Payam Olea Department: Room: EDIP Gender: Male Medical Administrative Specialist: : 1970 Requested By: Candace Ash Order Number: [id number] Reading MD: JEFFERY MONGE Measurements Intervals [place] Rate: 81 P: 50 [place]: 174 QRS: 8 QRSD: 130 T: 40 QT: 374 QTc: 436 Interpretive Statements SINUS RHYTHM POSSIBLE LEFT ATRIAL ENLARGEMENT [-0.1mV P WAVE IN V1/V2] POSSIBLE RIGHT VENTRICULAR CONDUCTION DELAY [RSR (QR) IN V1/V2] Compared to ECG 06/07/2021 22:17:55 Sinus tachycardia no longer present Electronically Signed On 06-08-2021 14:30:18 CDT by JEFFERY MONGE [id number]
[2021-06-08] MEDS: D5-NS 0.45% + KCL 20 mEq 20 MEQ/1,000 ML BAG 75 MEQ IV ×2 (03:52→17:20)
[2021-06-08] MEDS: ipratropium-albuterol 3 mL Neb INHALATION ×4 (03:55→19:45)
[2021-06-08] MEDS: ketorolac 30 mg/mL INJ IVP ×2 (06:04→20:30)
[2021-06-08 06:05] LABS: Basophils # 0.1 10^3/uL (0.0-0.1); Basophils % 0.6 %; Eosinophils # 0.1 10^3/uL (0.0-0.8); Eosinophils % 0.5 %; Hematocrit 33.2 % (42.0-52.0); Hemoglobin 10.2 g/dL (11.7-16.6); Lymphocytes # 1.6 10^3/uL (0.8-4.8); Lymphocytes % 12.1 %; Mean Corpuscular HGB Conc 30.7 g/dL (30.0-36.0); Mean Corpuscular Hemoglobin 27.6 pg (28.0-34.0); Mean Platelet Volume 10.2 fL (7.4-10.4); Monocytes % 7.6 %; Neutrophils # 9.95 10^3/uL (1.8-7.7); Neutrophils % 77.5 %; Nucleated Red Blood Cells % 0 %; Platelet Count 339 10^3/cmm (130-400); Red Blood Count 3.69 10^6/uL (4.1-5.3); Red Cell Distribution Width 14.3 % (12.1-15.1); White Blood Count 12.8 10^3/uL (4.0-10.0)
[2021-06-08 06:18] LABS: INR 1.19 (0.8-1.2)
[2021-06-08] MEDS: vancomycin 1,250 MG/250 ML PIGGYBACK 250 MG IV ×3 (06:18→22:43)
[2021-06-08 06:24] LABS: Troponin 5 6HR 20.34 ng/L (0-15); Troponin 5 6HR Delta 3.34 ng/L (0-12)
[2021-06-08 06:26] LABS: Anion Gap 13.7 (5-19); Blood Urea Nitrogen 10 mg/dL (6-20); C Reactive Protein 224.5 mg/L (0.0-4.9); Calcium 7.9 mg/dL (8.5-10.5); Carbon Dioxide 28 mmol/L (22-29); Chloride 98 mmol/L (98-107); Creatinine Clr Calc Pharmacy 135.7497; Glomerular Filtration Rate 101.9 mL/min (90-130); Glucose 228 mg/dL (65-115); Magnesium 1.6 mg/dL (1.7-2.3); Osmolality Calculated 286 mOsm/kg (285-295); Potassium 4.7 mmol/L (3.5-5.1); Sodium 135 mmol/L (136-145)
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
[2021-06-08 06:53] LABS: Erythrocyte Sedimentation Rate 107 mm/hr (0-10)
[2021-06-08] MEDS: piperacillin-tazobactam 3.375 GM in sodium chloride 0.9% (plus) 50 ML IV ×3 (07:37→23:46)
--- NOTE | 2021-06-08 09:28 | PC.RESP ---
SMOKING CESSATION INFORMATION SENT TO PATIENT.
[2021-06-08] MEDS: neomycin-poly-bacitracin oint 28 gm 1 APPLIC TOPICAL (10:24)
[2021-06-08] MEDS: docusate sodium 100 mg Capsule PO ×2 (10:25→17:20)
[2021-06-08] MEDS: famotidine 20 mg Tablet PO ×2 (10:25→17:20)
--- NOTE | 2021-06-08 11:49 | PM.MISC ---
Miscellaneous Note Purpose of Documentation: I have conferred by phone with my colleague from pulmonary medicine, Dr. Field. He has been gracious enough to review the CT scan and will give his impression.
--- NOTE | 2021-06-08 14:00 | PC.NURSE ---
Approximately 1400: Dr. Salmon requested that the patient be transferred to [facility]. I spoke with Mary with the [facility] Transfer Service and she reported that patient is placed on the waiting list, however she is unsure of how long it will be. Face sheet faxed per her request to .
--- NOTE | 2021-06-08 17:26 | PM.TDS ---
Transfer Summary Providers Date of Admission: 06/08/21 07:00 Date of Discharge: 06/08/21 Attending Provider at Admission: Kellie Willard MD Attending Provider at Transfer: Reece Salmon MD Primary Care Provider: Rivas Lobo MD Anticipated Date of Transfer: Anticipated date of transfer: 06/08/21 Receiving Facility & Provider: Receiving Provider: [] Receiving facility: [] Diagnoses at Discharge Discharge Diagnosis (1) Loculated pleural effusion: Status: Acute Reason for Visit Reason for Visit: Palpitations and chest pain Hospital Course Hospital Course 50 year old male who presented to the emergency room with chief complaint of chest pain, palpitations, difficulty breathing and pleuritic chest pain. Symptoms have been going on for several days. 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 He has progressively worsened since that time. A few days ago he had a subjective fever. Upon arrival in the ER he was worked up for any above-mentioned complaint. CT chest without contrast was done: Large volume multiloculated left pleural effusion.Multiple left-sided posterior rib fractures. WBC was elevated at 14,000, H&H: 10.4 and 32, CMP:normal, lactic acid : normal, troponin trend: Without any significant delta. PT/INR normal. EKG: Sinus rhythm with no acute ST-T wave changes.Patient was admitted for the management of loculated pleural effusion likely hemorrhagic from history of recent fall, cannot rule out complicated parapneumonic effusion, given the fact that the patient had leukocytosis was febrile.Patient was started on broad-spectrum antibiotics, cultures were sent. Cardiothoracic surgery as well as pulmonary medicine was consulted.Patient will need surgical extirpation of these loculated effusion or VATS decortication.since, we do not have cardiothoracic surgeon available during the weekend as well as in the next week, it was decided to transfer the patient.Patient has been accepted at [facility].Currently patient is stable to be transferred. Physical Exam Const: COMMON NORMALS: patient oriented x3 HENMT: COMMON NORMALS: normocephalic and atraumatic HEAD & SCALP: normocephalic and atraumatic Chest: OTHER: Tenderness in the left rib cage predominantly upper posterior. Resp: COMMON NORMALS: normal respiratory effort EFFORT & INSPECTION: Yes symmetric chest movement OTHER: Diminished air entry over left lower lung field. Cardio: COMMON NORMALS: regular rate, regular rhythm, S1 normal heart sound present, S2 normal heart sound present, No gallops present (Cardio), No murmurs present (Cardio), No rub (Cardio) and Peripheral pulses 2+ throughout RATE: regular rate RHYTHM: regular rhythm HEART SOUNDS: S1 normal heart sound present and S2 normal heart sound present PERIPHERAL PULSES: Peripheral pulses 2+ throughout GI: COMMON NORMALS: Normal to inspection, nondistended, normoactive bowel sounds present, Soft to palpation, non-tender, No hepatosplenomegaly present and no masses AUSCULTATION: Yes normoactive bowel sounds PALPATION: Yes Soft to palpation and Yes No hepatosplenomegaly present RECTAL EXAM: Yes deferred Extremity: COMMON NORMALS: no clubbing, cyanosis or edema and no pedal edema Neuro: COMMON NORMALS: patient oriented x3 TS Data Data Completed and Pending: Completed Studies During Hospitalization Category Date Time Status CT chest w con* [id number] Urgent Cat Scan 06/07/21 21:39 Completed XR chest 1V mara ble [id number] Stat Exams 06/07/21 21:23 Completed Pending at discharge Category Date Time Status Basic Metabolic P simran AM LABS Lab 06/09/21 04:00 Ordered Blood Culture Sta t Lab 06/07/21 23:12 Results Complete Blood Co unt w/Auto AM LABS Lab 06/09/21 04:00 Ordered Labs from last 24 hours 06/08/21 06/08/21 06/08/21 05:56 05:56 05:56 WBC RBC Hgb Hct MCV MCH MCHC RDW Plt Count MPV Neut % (Auto) Lymph % (Auto) Forest % (Auto) Eos % (Auto) Baso % (Auto) Neut # (Auto) Lymph # (Auto) Forest # (Auto) Eos # (Auto) Baso # (Auto) Nucleated RBC % (a uto) Nucleated RBCs # ESR 107 H PT INR Sodium 135 L Potassium 4.7 Chloride 98 Carbon Dioxide 28 Anion Gap 13.7 BUN 10 Creatinine 0.8 GFR Calculation 101.9 Glucose 228 H Calculated Osmolal ity 286 Lactic Acid Calcium 7.9 L Magnesium 1.6 L Total Bilirubin AST ALT Alkaline Phosphata se Troponin T Baselin e Troponin T 120 Min [place] Delta Troponin T Troponin T Hi Sens 6Hr Troponin T Hi Sens 6Hr Delta C-Reactive Protein 224.5 H Total Protein Albumin Globulin SARS-CoV-2 Ag (Rap id) Blood Type O Positive Rho(D) Type Positive / 4+ Antibody Screen Negative 06/08/21 06/08/21 06/08/21 05:56 05:56 05:56 WBC 12.8 H RBC 3.69 L Hgb 10.2 L Hct 33.2 L MCV 90.0 MCH 27.6 L MCHC 30.7 RDW 14.3 Plt Count 339 MPV 10.2 Neut % (Auto) 77.5 Lymph % (Auto) 12.1 Forest % (Auto) 7.6 Eos % (Auto) 0.5 Baso % (Auto) 0.6 Neut # (Auto) 9.95 H Lymph # (Auto) 1.6 Forest # (Auto) 1.0 H Eos # (Auto) 0.1 Baso # (Auto) 0.1 Nucleated RBC % (a uto) 0 Nucleated RBCs # 0.0 ESR PT 15.40 H INR 1.19 Sodium Potassium Chloride Carbon Dioxide Anion Gap BUN Creatinine GFR Calculation Glucose Calculated Osmolal ity Lactic Acid Calcium Magnesium Total Bilirubin AST ALT Alkaline Phosphata se Troponin T Baselin e Troponin T 120 Min [place] Delta Troponin T Troponin T Hi Sens 6Hr 20.34 H Troponin T Hi Sens 6Hr Delta 3.34 C-Reactive Protein Total Protein Albumin Globulin SARS-CoV-2 Ag (Rap id) Blood Type Rho(D) Type Antibody Screen 06/08/21 06/07/21 06/07/21 02:04 23:12 22:45 WBC RBC Hgb Hct MCV MCH MCHC RDW Plt Count MPV Neut % (Auto) Lymph % (Auto) Forest % (Auto) Eos % (Auto) Baso % (Auto) Neut # (Auto) Lymph # (Auto) Forest # (Auto) Eos # (Auto) Baso # (Auto) Nucleated RBC % (a uto) Nucleated RBCs # ESR PT INR Sodium Potassium Chloride Carbon Dioxide Anion Gap BUN Creatinine GFR Calculation Glucose Calculated Osmolal ity Lactic Acid 0.6 Calcium Magnesium Total Bilirubin AST ALT Alkaline Phosphata se Troponin T Baselin e Troponin T 120 Min [place] 18.18 H Delta Troponin T 1.18 Troponin T Hi Sens 6Hr Troponin T Hi Sens 6Hr Delta C-Reactive Protein Total Protein Albumin Globulin SARS-CoV-2 Ag (Rap id) Negative Blood Type Rho(D) Type Antibody Screen 06/07/21 06/07/21 06/07/21 22:21 22:21 22:21 WBC 14.1 H RBC 3.69 L Hgb 10.4 L Hct 32.4 L MCV 87.8 MCH 28.2 MCHC 32.1 RDW 14.2 Plt Count 352 MPV 10.1 Neut % (Auto) 77.5 Lymph % (Auto) 10.9 Forest % (Auto) 8.9 Eos % (Auto) 0.4 Baso % (Auto) 0.5 Neut # (Auto) 10.91 H Lymph # (Auto) 1.5 Forest # (Auto) 1.3 H Eos # (Auto) 0.1 Baso # (Auto) 0.1 Nucleated RBC % (a uto) 0 Nucleated RBCs # 0.0 ESR PT INR Sodium 131 L Potassium 3.8 Chloride 96 L Carbon Dioxide 26 Anion Gap 12.8 BUN 11 Creatinine 0.8 GFR Calculation 101.9 Glucose 98 Calculated Osmolal ity 271 L Lactic Acid Calcium 8.3 L Magnesium Total Bilirubin 0.4 AST 14 ALT 12 Alkaline Phosphata se 117 Troponin T Baselin e 17 H Troponin T 120 Min [place] Delta Troponin T Troponin T Hi Sens 6Hr Troponin T Hi Sens 6Hr Delta C-Reactive Protein Total Protein 5.8 L Albumin 2.9 L Globulin 2.9 SARS-CoV-2 Ag (Rap id) Blood Type Rho(D) Type Antibody Screen Vitals: Last Vital Signs Temp 99.3 F 06/08/21 16:03 Pulse 88 06/08/21 16:03 Resp 15 06/08/21 16:03 BP 136/74 06/08/21 16:03 Pulse Ox 93 06/08/21 16:03 TS Medications Medications Home Medications tizanidine 4 mg PO TID PRN 06/08/21 [History Confirmed 06/08/21] tramadol 50 mg PO TID PRN 06/08/21 [History Confirmed 06/08/21] Active Medications Acetaminophen (Acetaminophen 325 Mg Tablet) 650 mg PO Q6H PRN PRN Reason: Mild/Mod Pain Or Temp >/= 101 Albuterol/Ipratropium (Ipratropium-Albuterol 3 Ml Neb) 3 ml INHALATION Q6H.RESPIRATORY NADIA Last Admin: 06/08/21 15:36 Dose: 3 ml Documented by: Bisacodyl (Bisacodyl 5 Mg Tablet) 10 mg PO DAILY PRN; Protocol PRN Reason: Constipation (see protocol) Calcium Carbonate (Calcium Carbonate 500 Mg Chew Tablet) 1,000 mg PO Q4H PRN PRN Reason: DYSPEPSI Docusate Sodium (Docusate Sodium 100 Mg Capsule) 100 mg PO BID [facility] Last Admin: 06/08/21 17:20 Dose: 100 mg Documented by: Famotidine (Famotidine 20 Mg Tablet) 20 mg PO BID [facility] Last Admin: 06/08/21 17:20 Dose: 20 mg Documented by: Hydromorphone HCl (Hydromorphone 1 Mg/Ml Inj 1 Ml) 1 mg IVP Q3H PRN PRN Reason: Severe Pain, pain while npo Last Admin: 06/08/21 14:54 Dose: 1 mg Documented by: Piperacillin Sod/Tazobactam (Sod 3.375 gm/ Sodium Chloride) 50 mls @ 12.5 mls/hr IV Q8H [facility]; Protocol Last Admin: 06/08/21 17:20 Dose: 12.5 mls/hr Documented by: Potassium Chloride/Dextrose/Sod Cl (D5-Ns 0.45% + Kcl 20 Meq) 20 meq in 1,000 mls @ 75 mls/hr IV .[id number] [facility] Last Admin: 06/08/21 17:20 Dose: 75 mls/hr Documented by: Vancomycin/PEG/NADA/Lysine/Water (Vancocin) 1,250 mg in 250 mls @ 250 mls/hr IV Q8H [facility] Last Infusion: 06/08/21 16:03 Dose: Infused Documented by: Ketorolac Tromethamine (Ketorolac 30 Mg/Ml Inj) 30 mg IVP Q6H PRN PRN Reason: MODERATE PAIN Stop: 06/13/21 02:50 Last Admin: 06/08/21 06:04 Dose: 30 mg Documented by: Neomycin/Polymyxin/Bacitracin (Rwdcfujb-Epti-Bfjkibvqnu Oint 28 Gm) 1 applic TOPICAL BID [facility] Last Admin: 06/08/21 10:24 Dose: 1 unit Documented by: Ondansetron HCl (Ondansetron 2 Mg/Ml Sdv 2 Ml) 4 mg IVP Q8H PRN PRN Reason: vomiting, or N/V if npo Tizanidine HCl (Tizanidine 4 Mg Tablet) 4 mg PO TID PRN PRN Reason: Muscle Pain Discharge Plan Discharge Patient Disposition: Home Condition: Stable Prescriptions: Continued tizanidine 4 mg tablet 4 mg PO TID PRN (Reason: Muscle Pain) RF: 0 tramadol 50 mg tablet 50 mg PO TID PRN (Reason: Pain) RF: 0 Discharge Orders: Discharge Order (Routine); Ordered 06/08/21 Ordered By: Reece Salmon Discharge Diet: Regular Patient Instructions: Opioid Safety Transfer Attestations Time Spent in Transfer Care*: greater than 30 min Specific Discharge Activities: Specific discharge activities: educating patient, educating and/or supporting family/caregiver, discussing with pcp/other providers, discussing with counter caser/social workers/dc planners, documenting/other paperwork and evaluating patient/reviewing data Status at Transfer: Cognitive status at transfer: cognitively intact, Behavioral status at transfer: cooperative, Functional status at transfer: independent ambulation Quality Metrics Clinical Quality Measures: During this hospital stay, did patient experience: None Coding Level of Care Code Acute Acetylene Torch Burner for Ksuhg Fwd Diagnoses Loculated pleural effusion J90
[2021-06-08] MEDS: acetaminophen 325 mg Tablet 650 MG PO (20:49)
[2021-06-09] VITALS (14 sets, daily range): BP systolic 131–161; BP diastolic 69–81; PULSE 84–98; RESP 16–22; TEMP 36.9–37.6; O2SAT 91–98
[2021-06-09] MEDS: HYDROmorphone 1 mg/mL INJ 1 mL IVP ×4 (00:04→13:37)
[2021-06-09] MEDS: ipratropium-albuterol 3 mL Neb INHALATION ×2 (03:03→08:22)
[2021-06-09] MEDS: vancomycin 1,250 MG/250 ML PIGGYBACK 250 MG IV (06:01)
[2021-06-09 06:04] LABS: Basophils # 0.1 10^3/uL (0.0-0.1); Basophils % 0.4 %; Eosinophils # 0.1 10^3/uL (0.0-0.8); Eosinophils % 0.8 %; Hematocrit 33.7 % (42.0-52.0); Hemoglobin 10.5 g/dL (11.7-16.6); Lymphocytes # 1.4 10^3/uL (0.8-4.8); Lymphocytes % 10.1 %; Mean Corpuscular HGB Conc 31.2 g/dL (30.0-36.0); Mean Corpuscular Hemoglobin 27.9 pg (28.0-34.0); Mean Corpuscular Volume 89.6 fL (80-94); Mean Platelet Volume 9.7 fL (7.4-10.4); Monocytes # 0.9 10^3/uL (0.2-0.9); Monocytes % 6.4 %; Neutrophils # 11.03 10^3/uL (1.8-7.7); Neutrophils % 80.5 %; Nucleated Red Blood Cells % 0 %; Platelet Count 357 10^3/cmm (130-400); Red Blood Count 3.76 10^6/uL (4.1-5.3); Red Cell Distribution Width 14.4 % (12.1-15.1); White Blood Count 13.7 10^3/uL (4.0-10.0)
[2021-06-09] MEDS: D5-NS 0.45% + KCL 20 mEq 20 MEQ/1,000 ML BAG 75 MEQ IV (06:07)
[2021-06-09 06:23] LABS: Anion Gap 15.1 (5-19); Blood Urea Nitrogen 16 mg/dL (6-20); Calcium 8.3 mg/dL (8.5-10.5); Carbon Dioxide 27 mmol/L (22-29); Chloride 99 mmol/L (98-107); Creatinine Clr Calc Pharmacy 135.7497; Glomerular Filtration Rate 101.9 mL/min (90-130); Glucose 118 mg/dL (65-115); Osmolality Calculated 286 mOsm/kg (285-295); Potassium 4.1 mmol/L (3.5-5.1); Sodium 137 mmol/L (136-145)
[2021-06-09] MEDS: piperacillin-tazobactam 3.375 GM in sodium chloride 0.9% (plus) 50 ML IV (07:43)
[2021-06-09] MEDS: docusate sodium 100 mg Capsule PO (07:43)
[2021-06-09] MEDS: famotidine 20 mg Tablet PO (07:43)
[2021-06-09] MEDS: neomycin-poly-bacitracin oint 28 gm 1 APPLIC TOPICAL (07:49)
--- NOTE | 2021-06-09 08:24 | USCV_ITS ---
Payam Olea Age: 50 Gender: M : 1970 Exam Date: 06/09/2021 12:53 Ordering Phys: Reece Salmon MD Technologist: China Meyer [place] [facility] [place]: SOB BP: 149 / 76 HR: 114 Rhythm: Sinus Technical Quality: Suboptimal MEASUREMENTS (Male / Female) Normal Values 2D ECHO LV Diastolic Diameter PLAX 4.0 cm 4.2 - 5.9 / 3.9 - 5.3 cm LV Systolic Diameter PLAX 2.4 cm LV Chamber Size 4.6 cm IVS Diastolic Thickness 2.4 cm 0.6 - 1.0 / 0.6 - 0.9 cm IVS Systolic Thickness 2.5 cm LVPW Diastolic Thickness 1.3 cm 0.6 - 1.0 / 0.6 - 0.9 cm LVPW Systolic Thickness 1.4 cm RV Chamber Size 2.9 cm LVOT Diameter 1.9 cm LV Ejection Fraction 2D Teich 71.9 % LA Diameter 3.5 cm LA Width 2.9 cm LA Height 6.5 cm RA Width 3.5 cm RA Height 5.2 cm Aorta at Sinotubular Diameter 3.2 cm M-MODE LV Diastolic Diameter MM 6.7 cm 4.2 - 5.9 / 3.9 - 5.3 cm LV Systolic Diameter MM 3.8 cm LV Ejection Fraction MM Teich 74.2 % IVS Diastolic Thickness MM 1.1 cm 0.6 - 1.0 / 0.6 - 0.9 cm IVS Systolic Thickness MM 1.9 cm LVPW Diastolic Thickness MM 1.7 cm 0.6 - 1.0 / 0.6 - 0.9 cm LVPW Systolic Thickness MM 1.8 cm Aortic Annulus Diameter 3.5 cm LA Ao Ratio MM 1.1 DOPPLER AV Peak Velocity 147.0 cm/s LVOT Peak Velocity 129.0 cm/s AV Area Cont Eq vti 2.7 cm squared AV Area Cont Eq pk 2.5 cm squared MV Area PHT 2.7 cm squared Mitral E to A Ratio 1.0 MV E' Velocity 43.5 cm/s Mitral E to MV E' Ratio 6.5 Mitral E to LV E' Lateral Ratio 7.7 Mitral E to LV E' Septal Ratio 5.7 TV Peak E Velocity 110.0 cm/s Right Atrial Pressure 3.0 mmHg FINDINGS Left Ventricle Normal left ventricular size. LV systolic function is normal with EF of 55-60%. No regional wall motion abnormalities. Normal diastolic filling pattern. Right Ventricle Normal in size and function Right Atrium The right atrium is normal in size. Left Atrium The left atrium is dilated Mitral Valve Structurally normal mitral valve without significant stenosis or prolapse. There is no mitral regurgitation. Aortic Valve Grossly normal without stenosis. There is no aortic regurgitation. Tricuspid Valve Structurally normal tricuspid valve without significant stenosis or regurgitation. Insufficient TR jet to calculate RVSP Pulmonic Valve Structurally normal pulmonic valve without significant stenosis. There is no pulmonic regurgitation. Pericardium Large sized pleural effusion is seen Aorta Normal ascending aorta dimension. CONCLUSIONS LV systolic function is normal with EF of 55-60% Normal diastolic function Left atrium is enlarged Large sized pleural effusion is seen No comparison studies are available Mike Flores MD (Electronically Signed) Final Date: 09 June 2021 15:52 S
[2021-06-09] MEDS: morphine 4 mg/mL SDV 1 mL 1 MG IVP (10:51)
--- NOTE | 2021-06-09 13:31 | PC.NURSE ---
This nurse talked to patients mother to let her know patient is being transferred to [facility].
--- NOTE | 2021-06-09 14:24 | PC.NURSE ---
PT HAS DONE OKAY FOR ME TODAY. HE HAS HAD GOOD URINE OUTPUT. PT DOES HAVE COMPLAINTS OF PAIN BUT FALLS ASLEEP SHORTLY AFTER THE SCHEDULED DILAUDID IS GIVEN. PT IS ALERT AND ORIENTATED. ANSWERS ALL QUESTIONS APPROPRIATELY. PT DOES APPEAR TO BE PARANOID AND DOES HAVE SOME OUTBURSTS BUT IS DEESCALATED VERBALLY. [facility] HAS BED READY FOR PT. REPORT WAS CALLED TO JUAN M HELTON. PT GIVEN DILAUDID AT APPROXIMATELY [id number] TO ASSIST IN TRANSFER. AMBULANCE JUST ARRIVED TO TO [facility]. PT SAFELY WITH EMS.
== END 2021-06-09 14:32 | disposition short-term general hospital (02) | DRG 187 ==
LOC: ER 06-08 00:12 → ER IP 06-08 01:50 → MEDSURG 06-08 11:29
PROVIDERS: Admitting Provider Hospitalist; Emergency Provider Emergency Medicine; PCP Family Medicine; Visit Provider Internal Medicine
DX: J90 Pleural effusion, not elsewhere classified (principal); D62 Acute posthemorrhagic anemia; L03.113 Cellulitis of right upper limb; I10 Essential (primary) hypertension; G89.29 Other chronic pain; M54.9 Dorsalgia, unspecified; Z96.652 Presence of left artificial knee joint; F17.210 Nicotine dependence, cigarettes, uncomplicated; Z59.0 Homelessness; S22.42XD Multiple fractures of ribs, left side, subsequent encounter for fracture with routine healing; W19.XXXD Unspecified fall, subsequent encounter; S01.01XD Laceration without foreign body of scalp, subsequent encounter; F19.11 Other psychoactive substance abuse, in remission
CPT/HCPCS: 36415; 71045; 71260; 80048; 80053; 83605; 83735; 84484; 85025; 85610; 85651; 86140; 86850; 86900; 87040; 87426; 93005; 93306; 94640; 96365; 96367; 96375; 96376; 99285; J1170; J1885; J2270; J2405; J2543; J3370; J7050; Q9967

== ENCOUNTER 2021-09-17 12:25 | Emergency (ER) | payer MEDICARE, OTHER, SELFPAY ==
[2021-09-17 12:27] VITALS: BP 150/101; PULSE 78; RESP 20; TEMP 37; O2SAT 100; BMI 26.4
--- NOTE | 2021-09-17 12:28 | XRR_ITS ---
PROCEDURE INFORMATION: Exam: XR Right Knee Exam date and time: 09/17/2021 12:28 PM Age: 51 years old Clinical indication: Pain; Swelling or effusion of joint; Knee; Right; Additional info: R knee pain and swelling TECHNIQUE: Imaging protocol: XR Right knee. Views: 3 views. COMPARISON: No relevant prior studies available. FINDINGS: Bones/joints: No evidence of fracture or dislocation. Joint space narrowing of the medial compartment. Soft tissues: Suprapatellar effusion present. Anterior superficial soft tissue swelling. XR/XR knee RT 3V* [id number] IMPRESSION: 1. No evidence of fracture or dislocation. 2. Suprapatellar effusion. Radiation Dose CTDIVOL = (mGy): DLP = (mGy-cm)
[2021-09-17 12:38] VITALS: BP 150/101; PULSE 78; RESP 18; O2SAT 99
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
[2021-09-17] MEDS: acetaminophen-codeine 300-30mg Tablet 1 TAB PO (12:55)
--- NOTE | 2021-09-17 13:26 | CTR_ITS ---
PROCEDURE INFORMATION: Exam: CT Right Lower Extremity Without Contrast, Knee Exam date and time: 09/17/2021 1:26 PM Age: 51 years old Clinical indication: Pain; Knee; Right; Additional info: Rule out fracture TECHNIQUE: Imaging protocol: CT of the Right lower extremity without contrast was performed. Exam focused on the knee. Radiation optimization: All CT scans at this facility use at least one of these dose optimization techniques: automated exposure control; mA and/or kV adjustment per patient size (includes targeted exams where dose is matched to clinical indication); or iterative reconstruction. COMPARISON: CR XR knee RT 3V* [id number] 09/17/2021 12:34 PM RADIATION DOSE METRICS: Total DLP (mGy-cm): 725.26 FINDINGS: Bones/joints: No evidence of acute fracture. Subchondral cyst of the medial tibial plateau posteriorly with adjacent corticated irregularity which may be related to a remote avulsion fracture. Mild joint space narrowing of the medial compartment. Medial and lateral meniscal calcification noted. No dislocation. Soft tissues: Large suprapatellar effusion. Superficial soft tissue swelling/edema anterior to the knee. Calcifications at the insertion of the quadriceps tendon consistent with enthesopathy. CT/CT knee RT wo con* [id number] IMPRESSION: 1. Large suprapatellar effusion. 2. No acute fracture. 3. Subchondral cyst of the medial tibial plateau posteriorly with adjacent corticated irregularity which may be related to a remote avulsion fracture. 4. Medial joint space narrowing. 5. Meniscal calcification incidentally noted. Radiation Dose CTDIVOL = (mGy): DLP = 725.26 (mGy-cm)
[2021-09-17] MEDS: morphine 4 mg/mL SDV 1 mL IVP (13:35)
--- NOTE | 2021-09-17 13:36 | PC.NURSE ---
PATIENT IV SITE INFILTRATED. PATIENT IV STOPPED AND REMOVED BY THIS NURSE.
--- NOTE | 2021-09-17 13:45 | PC.PHAR ---
PT STATES HE TAKES NO RX OR OTC MEDICATIONS-PT STATES HE SUPPOSE TO TAKE BP MEDS BUT DOESNT
[2021-09-17 13:48] LABS: Basophils # 0.1 10^3/uL (0.0-0.1); Basophils % 0.7 %; Eosinophils # 0.1 10^3/uL (0.0-0.8); Eosinophils % 0.8 %; Hematocrit 43.4 % (42.0-52.0); Hemoglobin 13.7 g/dL (11.7-16.6); Lymphocytes # 1.7 10^3/uL (0.8-4.8); Lymphocytes % 20.5 %; Mean Corpuscular HGB Conc 31.6 g/dL (30.0-36.0); Mean Corpuscular Hemoglobin 28.2 pg (28.0-34.0); Mean Corpuscular Volume 89.5 fl (80-94); Mean Platelet Volume 10.5 fL (7.4-10.4); Monocytes # 0.8 10^3/uL (0.2-0.9); Monocytes % 9.6 %; Neutrophils # 5.72 10^3/uL (1.8-7.7); Nucleated Red Blood Cells % 0 %; Platelet Count 366 10^3/cmm (130-400); Red Blood Count 4.85 10^6/uL (4.1-5.3); Red Cell Distribution Width 14.6 % (12.1-15.1); White Blood Count 8.4 10^3/uL (4.0-10.0)
[2021-09-17] MEDS: ketorolac 30 mg/mL INJ IM (13:51)
[2021-09-17 14:15] LABS: Anion Gap 14.9 (5-19); Blood Urea Nitrogen 12 mg/dL (6-20); C Reactive Protein 77.1 mg/L (0.0-4.9); Calcium 9.5 mg/dL (8.5-10.5); Carbon Dioxide 26 mmol/L (22-29); Chloride 99 mmol/L (98-107); Glomerular Filtration Rate 118.4 mL/min (90-130); Glucose 69 mg/dL (65-115); Osmolality Calculated 280 mOsm/kg (285-295); Potassium 3.9 mmol/L (3.5-5.1); Sodium 136 mmol/L (136-145)
[2021-09-17] MEDS: morphine 4 mg/mL SDV 1 mL IM (14:38)
--- NOTE | 2021-09-17 14:53 | PC.NURSE ---
PATIENT JOINT ASPIRATION COMPLETED WITH DR CORONEL.
[2021-09-17] MEDS: lidocaine 1% INJ 20 mL INJECTION (14:54)
[2021-09-17] MEDS: benzocaine-menthol 78 gm Canister 1 SPRAY TOPICAL (14:54)
[2021-09-17 15:07] LABS: Color Synovial Fluid YELLOW (PALE YELLOW)
[2021-09-17 15:08] LABS: Appearance Synovial Fluid CLOUDY (CLEAR)
[2021-09-17 15:11] LABS: RBC Synovial Fluid 2 10^3/uL (0-0); Synovial Fluid Mononuclear # 1.887 10^3/uL; Synovial Fluid Polynuclear # 16.168 10^3/uL; WBC Synovial Fluid 18055 /uL (0-150)
[2021-09-17 15:35] LABS: PATH Referal NO
[2021-09-17 15:57] VITALS: BP 146/92; PULSE 81; RESP 16; O2SAT 99
--- NOTE | 2021-09-17 17:18 | PC.NURSE ---
THIS NURSE CHECKED ON PATIENT. PATIENT SLEEPING IN ROOM. THIS NURSE WOKE PATIENT TO READJUSTMENT PATIENT IN HIS BED. PATIENT HAD NO FURTHER NEEDS AT THIS TIME.
[2021-09-17 17:47] VITALS: PULSE 68; O2SAT 99
[2021-09-18 11:44] LABS: Erythrocyte Sedimentation Rate 62 mm/hr (0-10)
== END 2021-09-17 17:45 | disposition home or self-care (01) ==
PROVIDERS: Emergency Provider Emergency Medicine; PCP Electrodiagnostic Medicine
DX: M25.561 Pain in right knee (principal); F17.210 Nicotine dependence, cigarettes, uncomplicated
CPT/HCPCS: 20610; 73562; 73700; 80048; 80500; 85025; 85651; 86140; 87040; 87070; 87075; 87205; 89050; 96372; 96374; 99283; J1885; J2270

== ENCOUNTER 2022-01-15 12:49 | Emergency (ER) | payer MEDICARE, OTHER, SELFPAY ==
[2022-01-15 13:04] VITALS: BP 154/78; PULSE 103; RESP 16; TEMP 37.1; O2SAT 98; BMI 28.2
--- NOTE | 2022-01-15 13:15 | XRR_ITS ---
PROCEDURE INFORMATION: Exam: XR Left Elbow Exam date and time: 01/15/2022 1:15 PM Age: 51 years old Clinical indication: Injury or trauma; Fall; Swelling; Elbow; Left; Blunt trauma (contusions or hematomas); Additional info: Fall with swelling and pain of elbow TECHNIQUE: Imaging protocol: XR Left elbow. Views: 3 or more views. COMPARISON: No relevant prior studies available. FINDINGS: Bones/joints: Chronic displaced comminuted fracture deformities are seen within the elbow. The distal condyle of the humerus and the proximal ulna also display deformity. Soft tissues: Diffuse effusion is seen around the elbow joint. XR/XR elbow LT min 3V* [id number] IMPRESSION: 1. No acute bone abnormality. 2. Chronic deformity is seen in the left elbow as described. 3. Negative for acute bone abnormality. 4. Soft tissue effusion within the elbow
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
--- NOTE | 2022-01-15 14:28 | CTR_ITS ---
PROCEDURE INFORMATION: Exam: CT Left Upper Extremity Without Contrast, Elbow Exam date and time: 01/15/2022 2:28 PM Age: 51 years old Clinical indication: Injury or trauma; Fall; Arm, upper and elbow; Blunt trauma (contusions or hematomas); Injury details: PT fell on left arm 2 days ago. Large abscess above left elbow. Redness, swelling, hot to the touch, fever, pain; Prior surgery; Additional info: Abscess of left elbow TECHNIQUE: Imaging protocol: CT of the Left upper extremity without contrast was performed. Exam focused on the elbow. Radiation optimization: All CT scans at this facility use at least one of these dose optimization techniques: automated exposure control; mA and/or kV adjustment per patient size (includes targeted exams where dose is matched to clinical indication); or iterative reconstruction. COMPARISON: CR XR elbow LT min 3V* [id number] 01/15/2022 1:21 PM RADIATION DOSE METRICS: Total DLP (mGy-cm): 1043.61 FINDINGS: Bones/joints: Chronic appearing bone deformities are seen in the elbow. Apparent fractures and dislocations are seen. The examination does not show radiographic changes consistent with acute osteomyelitis. A 2nd area of inflammatory changes is seen near the anterior aspect of the elbow measuring 25 mm x 32 mm. This finding shows a area of decreased density centrally with a air bubble present. This finding also is consistent with a subcutaneous abscess. These lesions would be amenable to percutaneous drainage. (series 4, image 44) Soft tissues: There is diffuse soft tissue edema present in the area of the elbow joint space. There is a circumscribed fluid collection adjacent to the distal humerus measuring 31 mm x 39 mm. This finding is consistent with a subcutaneous abscess. CT/CT elbow LT wo con* [id number] IMPRESSION: 1. Diffuse effusion is seen throughout the elbow joint area. 2. There are 2 subcutaneous abscess collections seen in the elbow area. 3. Chronic comminuted fracture dislocation of the elbow.
[2022-01-15 15:29] VITALS: RESP 16
[2022-01-15] MEDS: morphine 4 mg/mL SDV 1 mL IM (15:29)
[2022-01-15] MEDS: vancomycin 1,500 MG/300 ML PIGGYBACK 200 MG IV (15:36)
[2022-01-15 15:44] LABS: Basophils # 0.1 10^3/uL (0.0-0.1); Basophils % 0.6 %; Eosinophils # 0.1 10^3/uL (0.0-0.8); Eosinophils % 0.5 %; Hematocrit 40.7 % (42.0-52.0); Hemoglobin 12.8 g/dL (11.7-16.6); Lymphocytes # 1.9 10^3/uL (0.8-4.8); Lymphocytes % 13.9 %; Mean Corpuscular HGB Conc 31.4 g/dL (30.0-36.0); Mean Corpuscular Hemoglobin 27.9 pg (28.0-34.0); Mean Corpuscular Volume 88.9 fl (80-94); Mean Platelet Volume 10.6 fL (7.4-10.4); Monocytes # 1.4 10^3/uL (0.2-0.9); Monocytes % 10.3 %; Neutrophils # 10.36 10^3/uL (1.8-7.7); Neutrophils % 74.3 %; Nucleated Red Blood Cells % 0 %; Platelet Count 255 10^3/cmm (130-400); Red Blood Count 4.58 10^6/uL (4.1-5.3); Red Cell Distribution Width 14.5 % (12.1-15.1)
[2022-01-15 16:20] LABS: Alanine Aminotransferase 22 U/L (0-41); Alkaline Phosphatase 71 IU/L (40-130); Anion Gap 13.1 (5-19); Aspartate Amino Transferase 21 U/L (0-40); Blood Urea Nitrogen 19 mg/dL (6-20); C Reactive Protein 81.9 mg/L (0.0-4.9); Calcium 9.6 mg/dL (8.5-10.5); Carbon Dioxide 24 mmol/L (22-29); Chloride 97 mmol/L (98-107); Globulin 4.4 g/dL (1.3-4.6); Glomerular Filtration Rate 118.4 mL/min (90-130); Glucose 97 mg/dL (65-115); Osmolality Calculated 272 mOsm/kg (285-295); Potassium 4.1 mmol/L (3.5-5.1); Sodium 130 mmol/L (136-145); Total Bilirubin 1.1 mg/dL (0.15-1.2); Total Protein 8.4 g/dL (6.6-8.7)
[2022-01-15] MEDS: sodium chloride 0.9% 1,000 ML 999 ML IV (16:40)
[2022-01-15 17:34] VITALS: RESP 16
[2022-01-15] MEDS: HYDROmorphone 1 mg/mL INJ 1 mL IVP (17:34)
[2022-01-15] MEDS: LORazepam 2 mg/mL INJ 1 mL 1 MG IVP (17:53)
--- NOTE | 2022-01-15 18:15 | PC.NURSE ---
DRESSING PLACED OVER OPENED ABSCESS
[2022-01-15 19:04] VITALS: RESP 16; O2SAT 99
[2022-01-15] MEDS: morphine 4 mg/mL SDV 1 mL IVP (19:04)
--- NOTE | 2022-01-15 19:10 | PC.NURSE ---
patient refused to leave- spoke with physician- med ordered- patient signed paperwork- patient verbalizes understanding of instructions- ambulated from the ed
[2022-01-16 18:10] LABS: Bacillus cereus group Not Detected (NOT DETECT); Bacillus subtillis group Not Detected (NOT DETECT); Corynebacterium Not Detected (NOT DETECT); Cutibacterium acnes (P.acnes) Not Detected (NOT DETECT); Enterococcus Not Detected (NOT DETECT); Enterococcus faecalis Not Detected (NOT DETECT); Enterococcus faecium Not Detected (NOT DETECT); Lactobacillus species Not Detected (NOT DETECT); Listeria Not Detected (NOT DETECT); Listeria monocytogenes Not Detected (NOT DETECT); Micrococcus Not Detected (NOT DETECT); Pan Candida Not Detected (NOT DETECT); Pan Gram-Negative Not Detected (NOT DETECT); Staphylococcus epidermidis Detected (NOT DETECT); Staphylococcus lugdunensis Not Detected (NOT DETECT); Staphylococcus species Detected (NOT DETECT); Streptococcus agalactiae Not Detected (NOT DETECT); Streptococcus anginosus group Not Detected (NOT DETECT); Streptococcus pneumoniae Not Detected (NOT DETECT); Streptococcus pyogenes Not Detected (NOT DETECT); Streptococcus species Not Detected (NOT DETECT); mecA Detected (NOT DETECT); mecC Not Detected (NOT DETECT)
== END 2022-01-15 19:10 | disposition home or self-care (01) ==
PROVIDERS: Physician Assistant; Emergency Provider Emergency Medicine; PCP Electrodiagnostic Medicine
DX: L02.414 Cutaneous abscess of left upper limb (principal); F17.210 Nicotine dependence, cigarettes, uncomplicated
CPT/HCPCS: 10060; 73080; 73200; 80053; 85025; 86140; 87040; 87070; 87075; 87150; 87205; 96365; 96375; 99283; J1170; J2060; J2270; J3370; J7030

== ENCOUNTER 2022-02-18 07:52 | Emergency (ER) | payer MEDICARE, SELFPAY ==
[2022-02-18 07:54] VITALS: BP 145/91; PULSE 105; RESP 18; TEMP 36.8; O2SAT 97; BMI 28.2
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
[2022-02-18 07:59] VITALS: BP 117/92; PULSE 103; RESP 16; TEMP 37.3; O2SAT 97; BMI 28.2
--- NOTE | 2022-02-18 07:59 | ECG_ITS ---
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 Measurements Intervals [place] Rate: 90 P: 26 [place]: 168 QRS: -36 QRSD: 123 T: 56 QT: 367 QTc: 449 Interpretive Statements SINUS RHYTHM LEFT AXIS DEVIATION [QRS AXIS < -30] POSSIBLE RIGHT VENTRICULAR CONDUCTION DELAY [RSR (QR) IN V1/V2] INFERIOR MYOCARDIAL INFARCTION , OF INDETERMINATE AGE [40+ ms Q WAVE AND/OR ST/T ABNORMALITY IN II/aVF] INTERPRETATION BASED ON A DEFAULT AGE OF 40 YEARS Compared to ECG 06/08/2021 03:32:05 Left-axis deviation now present Myocardial infarct finding now present Electronically Signed On 02-18-2022 20:17:35 CDT by Anat Mejia M.D. [email or web address] division [id number] conner
--- NOTE | 2022-02-18 08:04 | CT_ITS ---
WS: [id number] CT ABDOMEN PELVIS TECHNIQUE: Contrast-enhanced CT of the abdomen and pelvis with coronal and sagittal reformatted image s. CLINICAL INFORMATION: abd pain COMPARISON: None. DLP: 1804.[address] scans at [facility] use at least one of these dose optimization techniques: automated e xposure control; mA and/or kV adjustment per patient size (includes targeted exams where dose is matc hed to clinical indication); or iterative reconstruction. FINDINGS: Mild hepatomegaly. Diffuse fatty infiltration of the liver. Small esophageal hiatal hernia. Splenomeg du. Low-attenuation lesion in the spleen nonspecific but likely a small cyst or hemangioma measuring 15 mm. Lung bases are well aerated. Adrenal glands are normal. Normal renal parenchymal enhancement. Fluid distended gallbladder. Normal portal vein and splenic vein. Normal pancreas. No hydronephrosis in either kidney. Normal caliber abd ominal aorta. Fat-containing umbilical hernia. Fluid distended loops of proximal and distal small bowel with mucosal enhancement can be seen with sm all bowel enteritis. Scattered stool in the colon. No evidence of high-grade obstruction. Normal appe ndix in the RIGHT lower quadrant. Prior postoperative changes pedicle screw fixation L4-L5 with interbody fusion graft. Grade 1 anterol isthesis L5 on S1. CT/CT abdomen pelvis w con* [id number] IMPRESSION: 1. Fluid distended loops of proximal and distal small bowel with mucosal enhan cement suspicious for small bowel enteritis. 2. Colon is normal in appearance. 3. No evidence of high-grade small or large bowel obstruction. 4. Fat-containing umbilical hernia. 5. Mild hepatomegaly with diffuse fatty infiltration. Mild splenomegaly. 6. Small esophageal hiatal hernia.
--- NOTE | 2022-02-18 08:08 | PC.NURSE ---
PT PLACED ON CONTINUOUS SPO2, NIBP, AND CM.
[2022-02-18 08:20] VITALS: RESP 16
[2022-02-18] MEDS: lactated ringers 1,000 ML 999 ML IV ×2 (08:20→09:28)
[2022-02-18] MEDS: ondansetron 2 mg/ML SDV 2 mL 4 MG IVP (08:20)
[2022-02-18] MEDS: morphine 4 mg/mL SDV 1 mL IVP (08:20)
[2022-02-18 08:48] LABS: Basophils % 0.4 %; Eosinophils # 0.1 10^3/uL (0.0-0.8); Eosinophils % 0.8 %; Hematocrit 44.3 % (42.0-52.0); Hemoglobin 14.6 g/dL (11.7-16.6); Lymphocytes # 0.3 10^3/uL (0.8-4.8); Lymphocytes % 3.6 %; Mean Corpuscular Hemoglobin 28.9 pg (28.0-34.0); Mean Corpuscular Volume 87.5 fl (80-94); Mean Platelet Volume 10.4 fL (7.4-10.4); Monocytes # 0.3 10^3/uL (0.2-0.9); Monocytes % 3.7 %; Neutrophils # 8.26 10^3/uL (1.8-7.7); Neutrophils % 90.9 %; Nucleated Red Blood Cells % 0 %; Platelet Count 273 10^3/cmm (130-400); Red Blood Count 5.06 10^6/uL (4.1-5.3); Red Cell Distribution Width 14.4 % (12.1-15.1); White Blood Count 9.1 10^3/uL (4.0-10.0)
[2022-02-18] MEDS: iohexol 300 mg/mL 100 mL Btl IV (08:54)
[2022-02-18 09:08] LABS: Alanine Aminotransferase 27 U/L (0-41); Albumin Level 4.3 g/dL (3.5-5.2); Alkaline Phosphatase 70 IU/L (40-130); Anion Gap 17.6 (5-19); Aspartate Amino Transferase 30 U/L (0-40); Blood Urea Nitrogen 17 mg/dL (6-20); Calcium 9.1 mg/dL (8.5-10.5); Carbon Dioxide 18 mmol/L (22-29); Chloride 94 mmol/L (98-107); Globulin 4.2 g/dL (1.3-4.6); Glomerular Filtration Rate 88.6 mL/min (90-130); Glucose 159 mg/dL (65-115); Lipase 19 U/L (13-60); Osmolality Calculated 267 mOsm/kg (285-295); Potassium 3.6 mmol/L (3.5-5.1); Sodium 126 mmol/L (136-145); Total Bilirubin 1.4 mg/dL (0.15-1.2); Total Protein 8.5 g/dL (6.6-8.7)
[2022-02-18 09:58] LABS: Lactic Sepsis W/Reflex 2.7 mmol/L (0.5-2.2)
--- NOTE | 2022-02-18 10:07 | PC.PHAR ---
pt states he takes no rx medications
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
[2022-02-18 10:48] LABS: Add Urine Microscopic? NO; Charge for UA Resulting for Rev
[2022-02-18 10:50] LABS: Bilirubin Urine Neg (Negative); Blood Urine Neg (Negative); Glucose Urine UA Norm (Normal); Ketones Urine Negative (Negative); Leukocyte Esterase Urine Negative (Negative); Nitrate Urine Negative (Negative); Protein Urine Neg (Negative); Urine Appearance Clear (CLEAR); Urine Color Straw (Yellow); Urobilinogen Urine Norm (Negative); pH Urine 5 (5-7)
[2022-02-18 10:58] LABS: Amphetamines Screen Urine Positive (Negative); Barbiturates Screen Urine Negative (Negative); Benzodiazepines Screen Urine Negative (Negative); Cocaine Screen Urine Negative (Negative); Opiate Screen Urine Positive (Negative); PCP Screen Urine Negative (Negative); THC Screen Urine Negative (Negative)
[2022-02-18 11:24] LABS: Reflex Lactate Order REFLEX LACTIC ORDERD
--- NOTE | 2022-02-19 11:32 | DCPLANNER ---
manager lab had message to speak with patient about getting established with a primary care physician. manager lab called phone number [phone], unable to speak with patient at this time, and unable to leave a voicemail for patient.
== END 2022-02-18 12:30 | disposition home or self-care (01) ==
PROVIDERS: Emergency Provider Family Medicine; PCP Electrodiagnostic Medicine
DX: K52.9 Noninfective gastroenteritis and colitis, unspecified (principal); F15.90 Other stimulant use, unspecified, uncomplicated; F17.210 Nicotine dependence, cigarettes, uncomplicated
CPT/HCPCS: 36415; 74177; 80053; 80306; 81003; 83605; 83690; 85025; 93005; 96361; 96374; 96375; 99284; J2270; J2405; Q9967

== ENCOUNTER 2022-04-12 13:19 | Emergency (ER) | payer MEDICARE, SELFPAY ==
[2022-04-12 13:25] VITALS: BP 145/93; PULSE 81; RESP 16; O2SAT 98
--- NOTE | 2022-04-12 13:40 | XR_ITS ---
WS: [id number] XR knee LT 3V* [id number] REASON FOR EXAM: pain FINDINGS: Total left knee arthroplasty. No fracture or focal bone lesion. Prosthetic components are in proper position and alignment. No significant soft tissue abnormality. XR/XR knee LT 3V* [id number] IMPRESSION: Total left knee arthroplasty with no acute abnormality.
--- NOTE | 2022-04-12 13:40 | XR_ITS ---
WS: [id number] XR knee RT 3V* [id number] REASON FOR EXAM: pain FINDINGS: No fracture or focal bone lesion. Mild/moderate narrowing of the medial knee joint space with subchondral sclerosis and small marginal osteophytes. Lateral knee joint space is well preserved with mild subchondral sclerosis and small marginal osteoph ytes. Patellofemoral joint space is relatively well preserved with subchondral sclerosis and small marginal osteophytes. There appears to be a moderate joint effusion. 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 Moderate joint effusion.
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
[2022-04-12] MEDS: LORazepam 2 mg Tablet PO (13:41)
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
--- NOTE | 2022-04-12 17:17 | ECG_ITS ---
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 Measurements Intervals [place] Rate: 84 P: 15 [place]: 177 QRS: -18 QRSD: 131 T: 6 QT: 398 QTc: 471 Interpretive Statements SINUS RHYTHM INTRAVENTRICULAR CONDUCTION DELAY [130+ ms QRS DURATION] INFERIOR MYOCARDIAL INFARCTION , PROBABLY OLD [40+ ms Q WAVE AND/OR ST/T ABNORMALITY IN II/aVF] Compared to ECG 02/18/2022 08:26:55 Intraventricular conduction delay now present Left-axis deviation no longer present Myocardial infarct finding still present Electronically Signed On 04-12-2022 20:43:05 CDT by Mike Flores M.D. [id number]
== END 2022-04-12 14:26 | disposition home or self-care (01) ==
PROVIDERS: Emergency Provider Family Medicine; PCP Electrodiagnostic Medicine
DX: F41.9 Anxiety disorder, unspecified (principal); G89.29 Other chronic pain
CPT/HCPCS: 73030; 73562; 93005; 99283

== ENCOUNTER 2022-04-16 21:09 | Emergency (ER) | payer MEDICARE, SELFPAY ==
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
[2022-04-16 21:18] VITALS: TEMP 36.8; BMI 28.2
--- NOTE | 2022-04-16 21:24 | CTR_ITS ---
PROCEDURE INFORMATION: Exam: CT Pelvis Without Contrast; Skeletal Exam date and time: 04/16/2022 10:10 PM Age: 51 years old Clinical indication: Injury or trauma; Fall; Blunt trauma (contusions or hematomas); Right; Patient HX: Patient found on floor of [facility]pc cell. C/O RT hip pain. TECHNIQUE: Imaging protocol: Computed tomography images of the pelvis without contrast. Exam focused on the skeletal structures. Radiation optimization: All CT scans at this facility use at least one of these dose optimization techniques: automated exposure control; mA and/or kV adjustment per patient size (includes targeted exams where dose is matched to clinical indication); or iterative reconstruction. COMPARISON: CT abdomen pelvis w con* [id number] 02/18/2022 8:45 AM RADIATION DOSE METRICS: Total DLP (mGy-cm): 482.97 FINDINGS: Bones/joints: Intact posterior fusion hardware L4-L5. Grade 1 anterolisthesis present at L5-S1 secondary to facet arthritis. No acute fracture or dislocation. 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 Soft tissues: Unremarkable. CT/CT pelvis wo con [id number] IMPRESSION: 1. No acute fracture or dislocation. 2. Grade 1 anterolisthesis present at L5-S1 secondary to facet arthritis.
--- NOTE | 2022-04-16 21:24 | XRR_ITS ---
PROCEDURE INFORMATION: Exam: XR Left Humerus Exam date and time: 04/16/2022 10:28 PM Age: 51 years old Clinical indication: Pain; Upper arm; Left; Prior surgery; Surgery date: 6+ months; Surgery type: Lt. Elbow TECHNIQUE: Imaging protocol: XR Left humerus. Views: 2 or more views. COMPARISON: CT cervical spin wo con* [id number] 04/16/2022 10:01 PM FINDINGS: Bones/joints: No acute fracture or dislocation. Chronic deformity of the distal aspect of the humerus as well as the proximal radius and ulna with multiple corticated bone fragments. Small radiodensities within the humerus are stable. Soft tissues: Normal. XR/[place] [address] IMPRESSION: No acute fracture or dislocation. Stable, chronic deformity.
--- NOTE | 2022-04-16 21:24 | CTR_ITS ---
PROCEDURE INFORMATION: Exam: CT Thoracic Spine Without Contrast Exam date and time: 04/16/2022 10:04 PM Age: 51 years old Clinical indication: Injury or trauma; Fall; Blunt trauma (contusions or hematomas); Patient HX: PT fell in his residential cell. Unsure what happened. Puncture wound / laceration above right eyebrow; Additional info: Pain TECHNIQUE: Imaging protocol: Computed tomography images of the thoracic spine without contrast. Radiation optimization: All CT scans at this facility use at least one of these dose optimization techniques: automated exposure control; mA and/or kV adjustment per patient size (includes targeted exams where dose is matched to clinical indication); or iterative reconstruction. COMPARISON: CT cervical spin wo con* [id number] 04/16/2022 10:01 PM RADIATION DOSE METRICS: Total DLP (mGy-cm): 1854.52 FINDINGS: Vertebrae: There is normal vertebral body alignment. There are normal vertebral body heights. No fracture. Discs/Spinal canal/Neural foramina: Mild, diffuse disc space narrowing. Soft tissues: Unremarkable. Lymph nodes: Calcified lymph nodes are present, secondary to prior granulomatous disease. CT/CT thoracic spin wo con* [id number] IMPRESSION: No fracture.
--- NOTE | 2022-04-16 21:24 | CTR_ITS ---
PROCEDURE INFORMATION: Exam: CT Cervical Spine Without Contrast Exam date and time: 04/16/2022 10:01 PM Age: 51 years old Clinical indication: Injury or trauma; Fall; Blunt trauma; Injury details: PT fell in his intermediate cell. Unsure what happened. Puncture wound / laceration above right eyebrow; Additional info: Pain TECHNIQUE: Imaging protocol: Computed tomography images of the cervical spine without contrast. Radiation optimization: All CT scans at this facility use at least one of these dose optimization techniques: automated exposure control; mA and/or kV adjustment per patient size (includes targeted exams where dose is matched to clinical indication); or iterative reconstruction. COMPARISON: CT facial bones wo con* [id number] 04/16/2022 9:57 PM RADIATION DOSE METRICS: Total DLP (mGy-cm): 549.37 FINDINGS: Vertebrae: No acute fracture. Normal alignment. Degenerative change is identified in the spine. There is disc space narrowing and osteophyte formation especially at C5/6 and C6/7. Soft tissues: Unremarkable. Lungs: Lung apices are normal. CT/CT cervical spin wo con* [id number] IMPRESSION There is no evidence for fracture or facet dislocation.
--- NOTE | 2022-04-16 21:24 | CTR_ITS ---
PROCEDURE INFORMATION: Exam: CT Lumbar Spine Without Contrast Exam date and time: 04/16/2022 10:07 PM Age: 51 years old Clinical indication: Injury or trauma; Fall; Blunt trauma (contusions or hematomas); Prior surgery; Surgery type: Lumbar fusion; Patient HX: Patient found on floor in retirement cell. C/O low back pain. TECHNIQUE: Imaging protocol: Computed tomography images of the lumbar spine without contrast. Radiation optimization: All CT scans at this facility use at least one of these dose optimization techniques: automated exposure control; mA and/or kV adjustment per patient size (includes targeted exams where dose is matched to clinical indication); or iterative reconstruction. COMPARISON: CT thoracic spin wo con* [id number] 04/16/2022 10:04 PM RADIATION DOSE METRICS: Total DLP (mGy-cm): 1628.32 FINDINGS: Vertebrae: Intact posterior fusion hardware L4-L5. Grade 1 anterolisthesis present at L5-S1 secondary to facet arthritis. There are normal vertebral body heights. No fracture. Discs/Spinal canal/Neural foramina: Severe intervertebral disc space narrowing at L5-S1. Soft tissues: Unremarkable. Other findings: . CT/CT lumbar spine wo con* [id number] IMPRESSION: 1. No fracture. 2. Intact posterior fusion hardware L4-L5. 3. Grade 1 anterolisthesis present at L5-S1 secondary to facet arthritis. 4. Severe intervertebral disc space narrowing at L5-S1.
[2022-04-16] MEDS: acetaminophen 500 mg Tablet PO (22:53)
[2022-04-16] MEDS: tetanus-dipt-pertussis 0.5 mL SDV IM (22:54)
--- NOTE | 2022-04-17 13:37 | DCPLANNER ---
Addendum entered by Dottie Dawson 04/27/22 10:08: cyber security manager was told that clinic has not been able to reach patient to schedule an appointment. A letter was sent to patient to call clinic to schedule an appointment. Original Note: cyber security manager had message to schedule a follow up appointment for patient with [facility]. cyber security manager sent patients information to the front office staff at ENT. Patients information will be printed and reviewed. Clinic will call patient with appointment information.
== END 2022-04-16 23:25 | disposition home or self-care (01) ==
PROVIDERS: Emergency Provider Emergency Medicine; PCP Electrodiagnostic Medicine
DX: S02.2XXA Fracture of nasal bones, initial encounter for closed fracture (principal); S01.81XA Laceration without foreign body of other part of head, initial encounter; W19.XXXA Unspecified fall, initial encounter; Y92.143 Cell of prison as the place of occurrence of the external cause; Z23 Encounter for immunization
CPT/HCPCS: 12051; 70450; 70486; 72125; 72128; 72131; 72192; 73060; 90471; 90715; 99283

== ENCOUNTER 2022-06-24 19:43 | Emergency (ER) | payer MEDICARE, SELFPAY ==
--- NOTE | 2022-06-24 19:45 | ECG_ITS ---
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 Measurements Intervals [place] Rate: 89 P: 66 HI: 181 QRS: -36 QRSD: 130 T: 44 QT: 375 QTc: 458 Interpretive Statements SINUS RHYTHM LEFT AXIS DEVIATION [QRS AXIS < -30] POSSIBLE RIGHT VENTRICULAR CONDUCTION DELAY [RSR (QR) IN V1/V2] Compared to ECG 04/12/2022 13:33:14 Left-axis deviation now present Intraventricular conduction delay no longer present Myocardial infarct finding no longer present Electronically Signed On 06-25-2022 21:34:41 CDT by Lorri Pérez M.D. [id number]
--- NOTE | 2022-06-24 19:45 | XRR_ITS ---
PROCEDURE INFORMATION: Exam: XR Chest Exam date and time: 06/24/2022 8:24 PM Age: 51 years old Clinical indication: Angina; Additional info: Cp TECHNIQUE: Imaging protocol: Radiologic exam of the chest. Views: 1 view. COMPARISON: CT chest w con* [id number] 06/07/2021 9:59 PM FINDINGS: Lungs: Resolution of left mid and lower lung airspace disease. No focal consolidation. No pulmonary edema. Pleural spaces: Small left pleural effusion. No pneumothorax. Heart/Mediastinum: Stable mild enlargement of the cardiac silhouette. Mediastinal contours are unremarkable. Bones/joints: Stable changes consistent with a right reverse shoulder arthroplasty. Multilevel degenerative changes of varying severity in the visualized spine. Degenerative changes at the left shoulder. Multiple old left rib fractures. XR/XR chest 1V portable [id number] IMPRESSION: 1. Small left pleural effusion. 2. Incidental/nonacute findings are listed in the report.
[2022-06-24 20:10] VITALS: PULSE 90; RESP 97; TEMP 37.1; O2SAT 97; BMI 32.1
--- NOTE | 2022-06-24 21:17 | CTR_ITS ---
PROCEDURE INFORMATION: Exam: CT Lumbar Spine Without Contrast Exam date and time: 06/24/2022 9:57 PM Age: 51 years old Clinical indication: Injury or trauma; Fall; Blunt trauma (contusions or hematomas); Prior surgery; Surgery date: 6+ months; Additional info: Back pain TECHNIQUE: Imaging protocol: Computed tomography of the lumbar spine without contrast. Sagittal and coronal reformatted images were created and reviewed. Radiation optimization: All CT scans at this facility use at least one of these dose optimization techniques: automated exposure control; mA and/or kV adjustment per patient size (includes targeted exams where dose is matched to clinical indication); or iterative reconstruction. COMPARISON: CT lumbar spine wo con* [id number] 04/16/2022 10:07 PM RADIATION DOSE METRICS: Total DLP (mGy-cm): 1233.13 FINDINGS: Bones/joints: Vertebral body height is maintained. No subluxation. Normal bone mineralization. Stable grade 1 anterolisthesis of L5 on S1, likely due to facet degenerative change. Stable postsurgical changes consistent with previous spine fusion from L4-L5. No evidence for loosening of the surgical hardware. Heterotopic bone formation posterior to the right iliac wing that may represent sequela of remote trauma. No acute fracture. Discs/Spinal canal/Neural foramina: Stable multilevel degenerative changes of varying severity in the visualized spine. Lungs: Visualized lungs are clear. Vasculature: No evidence for aortic aneurysm. Incidental note of a retroaortic left renal vein. Soft tissues: No paravertebral soft tissue abnormality. No radiopaque foreign body. CT/CT lumbar spine wo con* [id number] IMPRESSION: 1. No acute fracture of the lumbar spine. 2. Stable multilevel degenerative changes of varying severity in the visualized spine. 3. Stable grade 1 anterolisthesis of L5 on S1, likely due to facet degenerative change. 4. Stable postsurgical changes consistent with previous spine fusion from L4-L5. No evidence for loosening of the surgical hardware. 5. Incidental/nonacute findings are listed in the report.
[2022-06-24 21:28] LABS: Basophils # 0.1 10^3/uL (0.0-0.1); Basophils % 0.5 %; Eosinophils % 0.3 %; Hematocrit 39.3 % (42.0-52.0); Hemoglobin 13.3 g/dL (11.7-16.6); Lymphocytes # 1.7 10^3/uL (0.8-4.8); Lymphocytes % 15.4 %; Mean Corpuscular HGB Conc 33.8 g/dL (30.0-36.0); Mean Corpuscular Volume 88.7 fl (80-94); Mean Platelet Volume 10.6 fL (7.4-10.4); Monocytes # 1.3 10^3/uL (0.2-0.9); Monocytes % 12.3 %; Neutrophils # 7.62 10^3/uL (1.8-7.7); Neutrophils % 71.2 %; Nucleated Red Blood Cells % 0 %; Platelet Count 223 10^3/cmm (130-400); Red Blood Count 4.43 10^6/uL (4.1-5.3); White Blood Count 10.7 10^3/uL (4.0-10.0)
--- NOTE | 2022-06-24 21:43 | CTR_ITS ---
PROCEDURE INFORMATION: Exam: CT Head Without Contrast Exam date and time: 06/24/2022 9:54 PM Age: 51 years old Clinical indication: Injury or trauma; Fall; Blunt trauma (contusions or hematomas); Additional info: AMS TECHNIQUE: Imaging protocol: Computed tomography of the head without contrast. Radiation optimization: All CT scans at this facility use at least one of these dose optimization techniques: automated exposure control; mA and/or kV adjustment per patient size (includes targeted exams where dose is matched to clinical indication); or iterative reconstruction. COMPARISON: CT head wo con* [id number] 04/16/2022 9:54 PM RADIATION DOSE METRICS: Total DLP (mGy-cm): 1196.88 FINDINGS: Brain: Normal. No hemorrhage. Unremarkable white matter. No mass effect. Cerebral ventricles: No ventriculomegaly. Paranasal sinuses: Visualized sinuses are unremarkable. No fluid levels. Mastoid air cells: Visualized mastoid air cells are well aerated. Bones/joints: Unremarkable. No acute fracture. Soft tissues: Unremarkable. CT/CT head wo con* [id number] IMPRESSION: No acute intracranial abnormality.
[2022-06-24 21:59] LABS: Acetaminophen < 5.0 ug/mL (10-30); Salicylate < 0.3 mg/dL (3-10)
[2022-06-24 22:00] LABS: Alanine Aminotransferase 17 U/L (0-41); Albumin Level 4.7 g/dL (3.5-5.2); Alkaline Phosphatase 70 IU/L (40-130); Aspartate Amino Transferase 31 U/L (0-40); Blood Urea Nitrogen 20 mg/dL (6-20); Calcium 9.5 mg/dL (8.5-10.5); Carbon Dioxide 24 mmol/L (22-29); Chloride 102 mmol/L (98-107); Globulin 3.4 g/dL (1.3-4.6); Glomerular Filtration Rate 70.3 mL/min (90-130); Glucose 99 mg/dL (65-115); Lipase 11 U/L (13-60); Osmolality Calculated 291 mOsm/kg (285-295); Sodium 139 mmol/L (136-145); Total Bilirubin 2.5 mg/dL (0.15-1.2); Total Protein 8.1 g/dL (6.6-8.7); Troponin(5th) Baseline 22 ng/L (0-15)
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
[2022-06-24 23:29] VITALS: PULSE 102; RESP 18; O2SAT 95
[2022-06-24 23:36] LABS: SARS Covid-2 Antigen Negative (Negative)
== END 2022-06-24 23:26 | disposition home or self-care (01) ==
PROVIDERS: Emergency Medicine; Emergency Provider Emergency Medicine; PCP Electrodiagnostic Medicine
DX: M62.830 Muscle spasm of back (principal); F17.210 Nicotine dependence, cigarettes, uncomplicated; Z20.822 Contact with and (suspected) exposure to COVID-19
CPT/HCPCS: 70450; 71045; 72131; 80053; 80307; 83690; 84484; 85025; 87426; 93005; 99285

== ENCOUNTER 2022-07-16 17:42 | Emergency (ER) | payer MEDICARE, SELFPAY ==
[2022-07-16 18:02] VITALS: BP 135/82; PULSE 81; RESP 16; TEMP 36.4; O2SAT 96; BMI 28.5
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
[2022-07-16] MEDS: clindamycin 150 mg/mL SDV 6 mL 600 MG IM (18:37)
--- NOTE | 2022-07-17 14:29 | DCPLANNER ---
plant quality manager had message to speak with patient about getting established with a primary care physician. plant quality manager was unable to speak with patient at this time.
== END 2022-07-16 18:41 | disposition home or self-care (01) ==
PROVIDERS: Emergency Provider Physician Assistant; PCP Electrodiagnostic Medicine
DX: L03.115 Cellulitis of right lower limb (principal); F17.210 Nicotine dependence, cigarettes, uncomplicated
CPT/HCPCS: 96372; 99284; J3490

== ENCOUNTER 2022-10-10 00:34 | Emergency (ER) | payer MEDICARE, SELFPAY ==
[2022-10-10 00:40] VITALS: BP 170/105; PULSE 104; RESP 19; TEMP 36.8; O2SAT 96; BMI 27.1
[2022-10-10 00:44] VITALS: PULSE 102; RESP 17; O2SAT 95
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
[2022-10-10] MEDS: vancomycin 1,000 MG in sodium chloride 0.9% 250 ML 250 MG IV (01:19)
[2022-10-10 01:23] LABS: Basophils # 0.1 10^3/uL (0.0-0.1); Basophils % 0.4 %; Eosinophils # 0.1 10^3/uL (0.0-0.8); Eosinophils % 0.4 %; Hematocrit 34.3 % (42.0-52.0); Lymphocytes # 1.6 10^3/uL (0.8-4.8); Lymphocytes % 12.8 %; Mean Corpuscular HGB Conc 32.1 g/dL (30.0-36.0); Mean Corpuscular Hemoglobin 28.8 pg (28.0-34.0); Mean Corpuscular Volume 89.8 fl (80-94); Mean Platelet Volume 10.3 fL (7.4-10.4); Monocytes # 0.9 10^3/uL (0.2-0.9); Neutrophils # 9.58 10^3/uL (1.8-7.7); Neutrophils % 78.4 %; Nucleated Red Blood Cells % 0 %; Platelet Count 394 10^3/cmm (130-400); Red Blood Count 3.82 10^6/uL (4.1-5.3); Red Cell Distribution Width 13.5 % (12.1-15.1); White Blood Count 12.2 10^3/uL (4.0-10.0)
[2022-10-10 01:44] VITALS: BP 151/91; PULSE 90; RESP 17
[2022-10-10] MEDS: HYDROcodone-acetaminophen 7.5-325 mg Tablet 1 TAB PO (01:51)
[2022-10-10] MEDS: sulfamethoxazole-trimeth DS 160-800 mg Tablet 1 TAB PO (01:51)
[2022-10-10 02:15] VITALS: BP 151/91; PULSE 90; RESP 17
== END 2022-10-10 02:23 | disposition home or self-care (01) ==
PROVIDERS: Emergency Provider Emergency Medicine
DX: L02.414 Cutaneous abscess of left upper limb (principal); F17.210 Nicotine dependence, cigarettes, uncomplicated
CPT/HCPCS: 10060; 85025; 87070; 96365; 99284; J3370; J7050

== ENCOUNTER 2022-11-08 15:29 | Emergency (ER) | payer MEDICARE, SELFPAY ==
[2022-11-08 15:33] VITALS: BP 101/58; PULSE 78; RESP 19; O2SAT 97; BMI 25.7
--- NOTE | 2022-11-08 15:47 | XR_ITS ---
WS: [id number] EXAMINATION: XR chest 1V portable [id number] REASON FOR EXAM: dyspnea/cough COMPARISON: 06/24/2022 ORDER DATE: 11/08/2022 3:47 PM TECHNIQUE: A single, portable frontal chest x-ray was obtained. X-RAY FINDINGS: The lungs are clear. Pleural spaces are clear. No pleural effusions or pneumothorax. Cardiomediastinal silhouette is normal. No evidence for pulmonary edema. There are old rib fracture deformities on the left. Right shoulder prosthesis. XR/XR chest 1V portable [id number] IMPRESSION: Unremarkable frontal portable chest x-ray.
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
[2022-11-08 16:42] LABS: SARS Covid-2 Antigen negative (Negative)
[2022-11-08 16:45] VITALS: BP 101/58; PULSE 78; RESP 19; O2SAT 97
[2022-11-08 16:46] LABS: Influenza A by IFA Negative (Negative); Influenza B by IFA Negative (Negative)
== END 2022-11-08 16:45 | disposition home or self-care (01) ==
PROVIDERS: Emergency Provider Family Medicine
DX: J11.1 Influenza due to unidentified influenza virus with other respiratory manifestations (principal); F17.200 Nicotine dependence, unspecified, uncomplicated; Z20.822 Contact with and (suspected) exposure to COVID-19
CPT/HCPCS: 71045; 87426; 87804; 99283

== ENCOUNTER 2023-07-25 19:45 | Emergency (ER) | payer MEDICARE, SELFPAY ==
[2023-07-25 19:53] VITALS: BP 132/81; PULSE 79; RESP 16; TEMP 36.6; O2SAT 98; BMI 33.9
[2023-07-25] MEDS: tizanidine 4 mg Tablet PO (21:38)
[2023-07-25] MEDS: ciprofloxacin 0.3% Op Soln 2.5 mL Btl 4 DROP EAR-RIGHT (21:38)
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
--- NOTE | 2023-07-28 08:41 | DCPLANNER ---
Addendum entered by Dottie Dawson 07/30/23 10:38: Patient has a follow up appointment scheduled for Saturday, August 26, 2023 at 11:00 with Vijay Medina at ortho. Original Note: air export logistics manager had message to schedule a follow up appointment for patient for ortho. air export logistics manager sent patients information to the front office staff at ortho. Patients information will be printed and reviewed. Clinic will call patient with appointment information.
--- NOTE | 2023-07-30 10:30 | DCPLANNER ---
vending manager was triggered to call patient due to no primary care physician - patient has an appointment scheduled at [facility] to establish care with Dr. Sanon in August.
== END 2023-07-25 21:39 | disposition home or self-care (01) ==
PROVIDERS: Emergency Provider Physician Assistant
DX: H60.91 Unspecified otitis externa, right ear (principal); M65.321 Trigger finger, right index finger; F17.210 Nicotine dependence, cigarettes, uncomplicated
CPT/HCPCS: 99283